=== PATIENT | female | born 1985 | race African-American/Black ===

== ENCOUNTER 2021-02-07 11:51 | Emergency (ER) | payer OTHER, SELFPAY ==
--- NOTE | ~2021-02-07 | CT_ITS ---
EXAMINATION: CT brain wo con, CT cervical spine wo con EXAM DATE: 02/07/2021 12:23 INDICATION: Fall, hit left side of head. Injury was on Thursday. TECHNIQUE: Spiral CT of the head was performed without contrast. Axial, coronal and sagittal images were reviewed. Spiral CT of the cervical spine was performed without contrast. Axial images were rev iewed. Coronal and sagittal reformatted images were also reviewed. The dose-length product (DLP) fo r this examination was 605.33 (accession [id number]), 431.33 (accession [id number]) mGy-cm. The exposure was tailored according to patient size, and iterative reconstruction (ASIR) was used as additional dose reduction technique. There is no prior study for comparison. FINDINGS: HEAD CT: There is no acute intraparenchymal hemorrhage. No evidence of intraparenchymal brain mass l esion. No evidence of acute infarction. There is no mass effect or midline shift. There is no obstru ctive hydrocephalus suspected. There are no extra-axial collections. There are no acute calvarial f ractures. The orbits are unremarkable. Soft tissue is unremarkable. The visualized sinuses and mas toid air cells are well aerated. CERVICAL CT: Unremarkable lung apices. There is no evidence of acute cervical fracture. The odontoid process is intact. Pre-dens space is normal. Prevertebral soft tissue is normal. There are no sof t tissue abnormalities identified. There is no disc space widening or traumatic vertebral body sublu xation suspected. There is mild C5-6 disc disease and mild cervical arthropathy. A detailed level b y level evaluation of spondylosis can be added as addendum if requested. IMPRESSION: 1. No acute intracranial findings or cervical fracture. Reviewed, dictated and finalized at location A. IMPRESSION: 1. No acute intracranial findings or cervical fracture.
[2021-02-07 12:00] VITALS: BP 146/98; PULSE 106; RESP 18; TEMP 36.1; O2SAT 98
--- NOTE | 2021-02-07 12:21 | ED.HEATRA ---
HPI - Head Injury General Chief complaint: Head Injury Stated complaint: fall with head injury Time Seen by Provider: 02/07/21 11:54 Source: RN notes reviewed History of Present Illness HPI Narrative: Patient presents emergency department from home for headache. Patient states that 3 days ago she was walking across her living room when she slipped on a mirror that was on the floor and fell backwards striking the back of her head on her in table she states that since that time she has had severe pain in her left posterior scalp behind her left ear going down into her left neck the pain progressively worsening every day states pain is worse with any movement of her neck bilaterally she denies any facial pain she denies any loss of consciousness vision changes numbness or tingling in the extremities or any other symptoms denies any other injury from the fall Related Data Allergies Allergy/AdvReac Type Severity Reaction Status Date / Time No Known Allergies Allergy Verified 02/07/21 12:06 Review of Systems Review of Systems: Gen.: Denies fevers or chills Eyes: Denies eye pain or visual change ENT: Denies congestion Respiratory: Denies shortness of breath or cough CV: Denies chest pain GI: Denies abdominal pain nausea, emesis Musculoskeletal: D reports left-sided neck pain Neuro: See HPI Skin: Denies rash Except as documented, all other systems reviewed and negative [facility] Past Medical History Medical History (Updated 02/07/21 @ 12:38 by Morteza Clemente DO) Diabetes mellitus Social History Social History (Updated 02/07/21 @ 12:23 by Morteza Clemente DO) Smoking status: Never smoker Exam Narrative: APPEARANCE: No acute distress, nontoxic, resting in bed EYES: EOMI HEENT: Normocephalic, tender palpation over the left posterior lateral scalp behind left ear no step-off seen no ecchymosis seen, TMs clear bilaterally nares patent full range of motion of jaw without pain Neck: Supple no midline chest palpation temporal patient with 2 muscles C1-3 pain with rotation of the head bilaterally RESPIRATORY: No respiratory distress MUSCULOSKELETAl: Moves all extremities. No clubbing, cyanosis or edema. NEURO: Awake and alert x 4. Following commands, speech normal, no focal deficits SKIN:: Warm, dry. No rashes lesions or abrasions PSYCHIATRIC: Normal affect/mood, Course Course Emergency Course: Discussed with patient results of workup and diagnosis. Discussed need for follow-up with primary care, proper use of medication, and reasons to return to the emergency department. Patient understands and agrees to current treatment plan Vital Signs Vital signs: Vital Signs Temperature 97 F L 02/07/21 12:00 Pulse Rate 106 H 02/07/21 12:00 Respiratory Rate 18 02/07/21 12:00 Blood Pressure 146/98 H 02/07/21 12:00 Pulse Oximetry 98 02/07/21 12:00 Temperature 97 F L 02/07/21 12:00 Pulse Rate 106 H 02/07/21 12:00 Respiratory Rate 18 02/07/21 12:00 Blood Pressure 146/98 H 02/07/21 12:00 Pulse Oximetry 98 02/07/21 12:00 MDM - Head Injury Imaging Data Radiologist's impression: ITS Impressions Cervical Spine CT 02/07/21 12:29 IMPRESSION: 1. No acute intracranial findings or cervical fracture. Head CT 02/07/21 12:29 IMPRESSION: 1. No acute intracranial findings or cervical fracture. Discharge Plan Discharge Clinical Impression: Contusion of head, Cervical strain, acute Patient Disposition: Home, Self-Care Condition: Stable Instructions: Antibiotic Form, Head Injury (ED) Additional Instructions: Return for increasing pain numbness or tingling in extremities or any other symptoms of concern Follow-up/Referrals: [facility], [Primary Care Provider] - 2 Days Time of Disposition: 12:38
--- NOTE | 2021-02-07 12:30 | PC.NURSE ---
Declines taking motrin, states she's on volteran and has been advised not to take other NSAIDS. States will take tylenol at home.
[2021-02-07 12:45] VITALS: BP 145/97; PULSE 108; RESP 18; TEMP 36.8; O2SAT 99
== END 2021-02-07 12:45 | disposition home or self-care (01) ==
PROVIDERS: Emergency Provider Emergency Medicine
DX: S16.1XXA Strain of muscle, fascia and tendon at neck level, initial encounter (principal); S00.03XA Contusion of scalp, initial encounter; E11.9 Type 2 diabetes mellitus without complications; W01.0XXA Fall on same level from slipping, tripping and stumbling without subsequent striking against object, initial encounter
CPT/HCPCS: 70450; 72125; 99284

== ENCOUNTER 2021-03-26 09:09 | Emergency (ER) | payer OTHER, SELFPAY ==
[2021-03-26 09:22] VITALS: BP 109/84; PULSE 93; RESP 16; TEMP 36.4; O2SAT 99
--- NOTE | 2021-03-26 10:34 | ED.NAVMDI ---
HPI - Nausea/Vomiting/Diarrhea General Chief complaint: Nausea/Vomiting/Diarrhea Stated complaint: NAUSEA/ABD PAIN Time Seen by Provider: 03/26/21 10:18 Source: patient and RN notes reviewed Mode of arrival: ambulatory Limitations: no limitations History of Present Illness HPI Narrative: Patient presents today complaining of nausea since yesterday with some slightly loose stools, but denies abdominal pain, vomiting, fever, diarrhea. She took 2 doses of Pepto-Bismol yesterday. Reports the first dose did help, but the second dose did not. Her nausea increases with any movement. Denies sick contacts. Denies chance of as she has been on her period continuously for the past month. MD elicited complaint: nausea Related Data Home Medications Medication Instructions Recorded Confirmed Calcium 03/26/21 03/26/21 biotin 03/26/21 dextroamphetamine-amphetamine 10 mg PO DAILY 03/26/21 03/26/21 [Adderall] dextroamphetamine-amphetamine 30 mg PO DAILY 03/26/21 03/26/21 [Adderall] diclofenac sodium 100 mg PO DAILY 03/26/21 03/26/21 duloxetine [Cymbalta] 20 mg PO BID 03/26/21 03/26/21 ergocalciferol (vitamin D2) 03/26/21 metformin 500 mg PO DAILY 03/26/21 03/26/21 omeprazole [Prilosec] 20 mg PO DAILY 03/26/21 03/26/21 pregabalin [Lyrica] 75 mg PO HS 03/26/21 03/26/21 sitagliptin [Januvia] 50 mg PO DAILY 03/26/21 03/26/21 Allergies Allergy/AdvReac Type Severity Reaction Status Date / Time No Known Allergies Allergy Verified 02/07/21 12:06 Review of Systems Review of Systems: CONSTITUTIONAL: Denies body aches, fever, chills, or sweats. EYES: Denies visual changes, redness, or discharge. ENT: Denies rhinorrhea, congestion, sore throat, or otalgia. CARDIOVASCULAR: Denies chest pain, palpitations, or edema. RESPIRATORY: Denies cough or dyspnea. GASTROINTESTINAL: Denies abdominal pain, vomiting, or diarrhea.+ Nausea GENITOURINARY: Denies dysuria or hematuria. SKIN: Denies rash, itching, or wounds. MUSCULOSKELETAL: Denies back pain, joint pain, or myalgia. NEUROLOGIC: Denies headache, numbness, tingling, or weakness. PSYCH: Denies depression or anxiety. [facility] Past Medical History Medical History (Updated 03/26/21 @ 11:17 by Annia Huerta, [facility], ) ADHD Diabetes mellitus Fibromyalgia GERD (gastroesophageal reflux disease) Social History Social History Smoking status: Never smoker Comments At time of signature, I have reviewed and agree with nursing past medical, surgical, social and family history unless otherwise noted. Please see nursing chart for further information. There is no relevant family history pertinent to the presenting complaint Exam Narrative: GENERAL: Well-appearing, well-nourished, and in no acute distress. HEAD: Normocephalic, atraumatic. EYES: EOMI. No redness or drainage. Conjunctivae normal. ENT: Mucous membranes pink and moist. NECK: Normal AROM. CHEST: No respiratory distress. Clear to auscultation. HEART: Regular rate and rhythm. No murmur appreciated. Normal peripheral pulses. ABDOMEN: Soft, nontender, nondistended, normal active bowel sounds. EXTREMITIES: Normal range of motion. No edema. SKIN: Warm, dry, no rash. Capillary refill normal. Normal skin turgor. NEURO: No focal deficits. Alert and oriented x3. Gait steady. PSYCH: Normal affect. No signs of depression or anxiety. Course Course Emergency Course: 1115-patient is sitting up in the exam room and states she is feeling much better after the Zofran. Anticipatory guidance given. Vital Signs Vital signs: Vital Signs Temperature 97.5 F L 03/26/21 09:22 Pulse Rate 93 03/26/21 09:22 Respiratory Rate 16 03/26/21 09:22 Blood Pressure 109/84 03/26/21 09:22 Pulse Oximetry 99 03/26/21 09:22 Temperature 97.5 F L 03/26/21 09:22 Pulse Rate 93 03/26/21 09:22 Respiratory Rate 16 03/26/21 09:22 Blood Pressure 109/
[2021-03-26] MEDS: ONDANSETRON HCL ODT 4 MG TABLET 8 MG SUBLINGUAL (10:40)
== END 2021-03-26 11:19 | disposition home or self-care (01) ==
PROVIDERS: Emergency Provider Nurse Practitioner
DX: R11.0 Nausea (principal); F90.9 Attention-deficit hyperactivity disorder, unspecified type; E11.9 Type 2 diabetes mellitus without complications; M79.7 Fibromyalgia; K21.9 Gastro-esophageal reflux disease without esophagitis
CPT/HCPCS: 99213; A9270; G0463

== ENCOUNTER 2021-12-29 14:24 | Emergency (ER) | payer OTHER, SELFPAY ==
[2021-12-29 14:32] VITALS: BP 129/86; PULSE 106; RESP 16; TEMP 35.9; O2SAT 100
--- NOTE | 2021-12-29 14:59 | ED.SKABFB ---
HPI - Skin/Abscess/Foreign Bdy General Chief complaint: Skin/Abscess/Foreign Body Stated complaint: Skin irritation on right shoulder Time Seen by Provider: 12/29/21 14:50 Source: patient, RN notes reviewed and old records reviewed Mode of arrival: ambulatory Limitations: no limitations History of Present Illness HPI narrative: 36-year-old female who presents to [facility] care with complaints of skin irritation to the posterior aspect of her right shoulder from application of ice to her shoulder. Patient reports that she had shoulder surgery a few months ago and was having discomfort to her shoulder and put ice pack to posterior shoulder resulting in discoloration and irritation to the tissue with 2 small blisters noted to skin.Patient reports that she put ice pack directly on skin. MD complaint: discoloration (and skin irritation posterior right shoulder) Tetanus up to date: yes Severity: mild Severity scale (1-10): 2 Treatments prior to arrival: none Related Data Home Medications Medication Instructions Recorded Confirmed gabapentin 300 mg capsule 300 mg PO DIRECTED 12/29/21 12/29/21 Allergies Allergy/AdvReac Type Severity Reaction Status Date / Time No Known Allergies Allergy Verified 12/29/21 15:26 Review of Systems Review of Systems: CONSTITUTIONAL: Denies fever, chills, or sweats. EYES: Denies visual changes, redness, or discharge. ENT: Denies rhinorrhea, congestion, sore throat, or otalgia. CARDIOVASCULAR: Denies chest pain, palpitations, or edema. RESPIRATORY: Denies cough or dyspnea GASTROINTESTINAL: Denies abdominal pain, nausea, vomiting, or diarrhea. GENITOURINARY: Denies dysuria or hematuria. SKIN: Positive for discomfort and itching to posterior right shoulder skin with discoloration and 2 small skin blisters no open drainage. MUSCULOSKELETAL: Denies back pain, right shoulder discomfort, or myalgia. NEUROLOGIC: Denies headache, numbness, or weakness. PSYCHIATRIC: Denies anxiety or depression. All systems reviewed & are unremarkable except as noted in HPI and below PMFSH Past Medical History Medical History (Updated 12/30/21 @ 00:00 by Jose G Aviles) ADHD Diabetes mellitus Fibromyalgia GERD (gastroesophageal reflux disease) Surgical History Surgical History (Updated 01/01/22 @ 08:24 by Sandy Wyman NP) History of arthroscopic surgery of shoulder Social History Social History Smoking status: Never smoker Comments At time of signature, agree with nursing past medical, surgical, social and family history. There is no relevant family history pertinent to the presenting complaint Exam Narrative: GENERAL: Well-appearing, well-nourished, and in no acute distress. HEAD: Normocephalic, atraumatic. EYES: PERRLA and EOMI. ENT: Nares clear, no rhinorrhea or epistaxis. Mucous membranes moist.TM's normal with good light reflex, throat normal with no redness or swelling NECK: Supple.no lymphadenopathy CHEST: Clear to auscultation. No respiratory distress. HEART: Regular rate and rhythm. No murmur heard. Normal peripheral pulses. ABDOMEN: Soft, nontender, nondistended, normal active bowel sounds. EXTREMITIES: Normal range of motion. No edema. SKIN: Warm, dry, discoloration to skin tissue posterior right sholder with 2 small blisters noted no open drainage with some itching and minimal discomfort to skin tissue NEURO: No focal deficits. Alert and oriented x3. Course Course Level of Care: Express Care Visit Vital Signs Vital signs: Vital Signs Temperature 35.9 C L 12/29/21 14:32 Pulse Rate 106 H 12/29/21 14:32 Respiratory Rate 16 12/29/21 14:32 Blood Pressure 129/86 12/29/21 14:32 Pulse Oximetry 100 12/29/21 14:32 Oxygen Delivery Room Air 12/29/21 14:32 Temperature 35.9 C L 12/29/21 14:32 Pulse Rate 106 H 12/29/21 14:32 Respiratory Rate 16 12/29/21 14:32 Blood Pressure 129/86 12/29/21 14:32 Pulse Oxi
== END 2021-12-29 15:21 | disposition home or self-care (01) ==
PROVIDERS: Emergency Provider Registered Nurse
DX: L98.9 Disorder of the skin and subcutaneous tissue, unspecified (principal); E11.9 Type 2 diabetes mellitus without complications; M79.7 Fibromyalgia; K21.9 Gastro-esophageal reflux disease without esophagitis
CPT/HCPCS: 99213; G0463

== ENCOUNTER 2022-09-21 19:12 | Emergency (ER) | payer OTHER, SELFPAY ==
[2022-09-21] VITALS (8 sets, daily range): BP systolic 121–143; BP diastolic 89–110; PULSE 93–134; RESP 15–20; TEMP 36.4; O2SAT 97–100
--- NOTE | ~2022-09-21 | XR_ITS ---
EXAMINATION: XR chest 2V Exam Date/Time: 09/21/2022 20:15 CDT HISTORY: nausea, sweating Comparison: None. RESULT: Lines, tubes, and devices: None. Lungs and pleura: Clear. Cardiomediastinal silhouette: Normal. Other: No acute osseous or upper abdominal finding. IMPRESSION: No acute cardiopulmonary process. Reviewed, dictated and finalized at location K.
[2022-09-21 19:44] LABS: Glucose Point of Care 322 mg/dl (65-105)
--- NOTE | 2022-09-21 20:07 | ECG_ITS ---
Measurements Intervals [place] Rate: 110 P: 41 PA: 151 QRS: -27 QRSD: 69 T: 50 QT: 326 QTc: 443 Interpretive Statements SINUS TACHYCARDIA BORDERLINE R WAVE PROGRESSION, ANTERIOR LEADS BORDERLINE T WAVE ABNORMALITY- ANTERIOR LEADS BASELINE ARTIFACT- AVL, AVF, V1 ABNORMAL ECG NO PREVIOUS ECG AVAILABLE FOR COMPARISON Electronically Signed On 09-21-2022 20:41:32 CDT by Gorge Wen D.O.
--- NOTE | 2022-09-21 20:19 | PC.NURSE ---
Pt in XR ay this time
--- NOTE | 2022-09-21 20:22 | ED.GENADULT ---
HPI - General Adult General Chief complaint: Unspecified Stated complaint: sweating Time Seen by Provider: 09/21/22 19:45 Source: patient and RN notes reviewed Mode of arrival: ambulatory Limitations: no limitations History of Present Illness HPI narrative: THis is a 36 year old female with history of hypertension who presents for evaluation of sweating and nausea. PAtient states she has history of hyperhidrosis but over the past 3 days she has been sweating more than usual with minimal activity. She reports facial sweating that has been profuse . She also reports nausea and she had emesis x [address] to ER. She denies chest pain, sob, abdominal pain, cough, fever or chills. She has diabetes and she has not taken her metformin and Januvia in 2 days due to her nausea. She reports decrease PO intake due to her nausea. She also reports dry mouth. Related Data Home Medications Medication Instructions Recorded Confirmed gabapentin 300 mg capsule 300 mg PO DIRECTED 12/29/21 12/29/21 Allergies Allergy/AdvReac Type Severity Reaction Status Date / Time No Known Allergies Allergy Verified 09/21/22 19:18 Review of Systems Constitutional: Constitutional: Denies weakness ENT: Reports dry mouth Cardiovascular: Cardiovascular: Reports diaphoresis, Denies syncope, Denies rapid heart rate, Denies irregular heart rhythm, Denies leg edema and Denies dyspnea Respiratory: Respiratory: Denies chest congestion, Denies hemoptysis, Denies excessive phlegm production and Denies dyspnea Gastrointestinal: Gastrointestinal: Denies abdominal pain, Denies hematochezia, Denies diarrhea, Reports nausea and Denies vomiting Genitourinary: Genitourinary: Denies hematuria and Denies dysuria Musculoskeletal: Musculoskeletal: Denies joint swelling, Denies loss of height and Denies muscle weakness Neurologic: Denies syncope, Denies focal weakness and Denies weakness PMFSH Past Medical History Medical History ADHD Diabetes mellitus Fibromyalgia GERD (gastroesophageal reflux disease) Surgical History Surgical History History of arthroscopic surgery of shoulder Social History Social History (Updated 09/21/22 @ 21:00 by Yoli Arreola MD) Smoking status: Never smoker Substance use: never Exam Narrative: GENERAL: Well-appearing, well-nourished, and in no acute distress. HEAD: Normocephalic, atraumatic EYES: PERRLA and EOMI, conjunctiva clear without discharge EARS: TM's clear bilaterally without erythema or dullness NOSE: Nares clear, no rhinorrhea or epistaxis THROAT:Mucous membranes moist, Oropharynx normal without erythema, exudate, peritonsillar swelling or fluctuance NECK: Supple, without lymphadenopathy or mass RESPIRATORY: No respiratory distress, Airway patent, Respirations non-labored, Clear to auscultation without rales, rhonchi or wheeze HEART: Regular rate and rhythm. No murmur heard. Normal peripheral pulses. ABDOMEN: Soft, nontender, nondistended, normal active bowel sounds. No masses. No rebound or guarding, No organomegaly. EXTREMITIES: No edema, normal strength with full range of motion. SKIN: Warm, dry, normal color without rash NEURO: Alert and oriented x3. CN 2-12 grossly intact. No focal deficits. PSYCH: Normal mood and affect. Course Reevaluation(s) Reevaluation #1: PAtient states she feels better. She does not have any complaints. Vitals are normal now. She denies any sweating, weakness, nausea or dizziness. Date: 09/21/22 Time: 22:15 Vital Signs Vital signs: Vital Signs Temperature 97.6 F 09/21/22 19:14 Pulse Rate 134 H 09/21/22 19:14 Respiratory Rate 20 09/21/22 19:14 Blood Pressure 141/110 H 09/21/22 19:14 Pulse Oximetry 97 09/21/22 19:14 Oxygen Delivery Room Air 09/21/22 19:14 Temperature 97.6 F 09/21/22 19:14 Pulse Rate 94
[2022-09-21] MEDS: SODIUM CHLORIDE 0.9% IV 1,000 ML 999 ML IV CONT ×2 (20:31→21:13)
[2022-09-21] MEDS: ONDANSETRON INJ 4 MG/2 ML VIAL IV PUSH (20:31)
[2022-09-21 20:44] LABS: Fractional Inspired Oxygen 21 %; HCO3 VBG 24.5 mEq/l (24.0-30.0); PCO2 VBG 35.8 mmHg (42.0-48.0); PO2 VBG 55.7 mmHg (35.0-45.0)
[2022-09-21 20:47] LABS: Device ROOM AIR; pH VBG 7.453 (7.300-7.400)
[2022-09-21 20:48] LABS: Basophils Percent Auto 0.1 % (0.2-1.2); Eosinophils Percent Auto 0.4 % (0-4.4); Hematocrit 46.8 % (37.0-47.0); Hemoglobin 15.4 g/dL (12.0-15.0); Immature Granulocyte Absolute 0.03 K/mm3 (0.00-0.031); Immature Granulocyte Percent A 0.4 % (0-0.5); Lymphocytes Absolute Auto 1.93 K/mm3 (0.9-3.2); Lymphocytes Percent Auto 24.2 % (18.3-44.2); Mean Corpuscular HGB Conc 32.9 g/dl (32-36); Mean Corpuscular Hemoglobin 27.5 pg (26-34); Mean Corpuscular Volume 83.4 fl (80-100); Monocytes Absolute Auto 0.5 K/mm3 (0.1-0.6); Monocytes Percent Auto 6.3 % (2.6-8.5); Neutrophils Absolute Auto 5.5 K/mm3 (1.3-6.7); Neutrophils Percent Auto 68.6 % (45.5-73.1); Platelet Count Result 303 k/mm3 (150-375); Red Blood Count 5.61 M/mm3 (4.2-5.4); Red Cell Distribution Width 13.3 % (11.5-14.5)
[2022-09-21 20:52] LABS: Appearance Urine Clear (Clear); Bacteria Urine None Seen /hpf; Bilirubin Urine Negative (Negative); Blood Urine 2+ (Negative); Color Urine Yellow (Yellow); Glucose Urine UA 3+ mg/dL (Negative); Ketones Urine 2+ mg/dL (Negative); Leukocyte Esterase Ur Negative LEU/UL (Negative); Nitrate Urine Negative (Negative); Non Pathogenic Casts 0-2; Protein Urine 2+ mg/dL (Negative); RBC Urine 0-2 /hpf (0-2); Squamous Epithelial Cell Urine Occasional /hpf (Few); WBC Urine 0-5 /hpf; pH Urine 5.5 (5.0-9.0)
[2022-09-21 20:54] LABS: Specific Grav Ur 1.041 (1.001-1.035)
[2022-09-21 20:55] LABS: Add Urine Microscopic? YES
[2022-09-21 20:59] LABS: Alanine Aminotransferase 29 U/L (6-35); Albumin Level 4.7 g/dL (3.5-5.1); Alkaline Phosphatase 122 U/L (38-126); Anion Gap 9 mmol/L (8-16); Aspartate Amino Transferase 31 U/L (14-36); Bilirubin,Total 0.7 mg/dL (0.2-1.3); Blood Urea Nitrogen 9 mg/dL (7-17); Calcium 9.2 mg/dL (8.4-10.2); Carbon Dioxide 26 mmol/L (22-30); Chloride 99 mmol/L (98-107); Estimated CRCL calculation 116 ml/min; Estimated Glomerular Filt Rate > 60; Glucose 298 mg/dL (65-110); Lipase 53 U/L (23-300); Magnesium 2.1 mg/dL (1.6-2.3); Potassium 4.2 mmol/L (3.4-5.0); Sodium 134 mmol/L (137-145)
[2022-09-21 21:00] LABS: Lactic Acid Reflex 1.5 mmol/L (0.7-2.0)
[2022-09-21] MEDS: INSULIN HUMAN REGULAR (*BKC) 100 UNITS/ML 6 UNITS SUB-Q (21:09)
[2022-09-21 21:16] LABS: Beta-Hydroxybutyrate/Acetoacetate 0.55 mmol/L (0.02-0.27)
[2022-09-21 21:25] LABS: Influenza A QL RT-PCR Negative (Negative); Influenza B QL RT-PCR Negative (Negative); SARS-CoV-2 RNA PCR Negative (Negative)
[2022-09-21 21:58] LABS: Glucose Point of Care 278 mg/dl (65-105)
== END 2022-09-21 22:45 | disposition home or self-care (01) ==
PROVIDERS: Emergency Provider General Practice
DX: E11.65 Type 2 diabetes mellitus with hyperglycemia (principal); E86.0 Dehydration; R61 Generalized hyperhidrosis; I10 Essential (primary) hypertension; Z20.822 Contact with and (suspected) exposure to COVID-19; K21.9 Gastro-esophageal reflux disease without esophagitis; M79.7 Fibromyalgia; R00.0 Tachycardia, unspecified; R94.31 Abnormal electrocardiogram [ECG] [EKG]
CPT/HCPCS: 36415; 71046; 80053; 81001; 81025; 82010; 82803; 82948; 83605; 83690; 83735; 84443; 85025; 87636; 93005; 96361; 96374; 99284; J1815; J2405; J7030

== ENCOUNTER 2024-01-29 14:57 | Emergency (ER) | payer OTHER, SELFPAY ==
--- NOTE | ~2024-01-29 | CT_ITS ---
CTA chest PE protocol Ordering provider: Diego Silva MD History: 38 years Female with . R upper chest/back pain . Comparison: None. Technique: CT angiogram chest was performed following timed intravenous injection of contrast. Thin s lice axial images and reformatted coronal images were obtained. Three dimensional reformatted images of the chest were also obtained using a [employer] workstation. . Automated exposure control and iterati ve reconstruction technique were employed. The dose-length product was 238.66 mGy-cm. 100 mL Omnipaqu e 350 was given IV. The Findings: PULMONARY ARTERIES: No pulmonary embolus. VISUALIZED THORACIC INLET: Normal. MEDIASTINUM: Aorta/coronary arteries: The thoracic aorta is normal. Heart/other: The heart is not enlarged. Lymph nodes: No mediastinal or hilar adenopathy. LUNGS: No pulmonary nodules or masses. No infiltrates or effusions. No pneumothorax. VISUALIZED UPPER ABDOMEN: the visualized upper abdomen is normal. MUSCULOSKELETAL: Soft tissues: The superficial soft tissues are normal. Bones: Normal spine. IMPRESSION: 1. No pulmonary embolism. 2. No acute cardiopulmonary pathology. Reviewed, dictated and finalized at location A.
[2024-01-29 15:06] VITALS: BP 137/81; PULSE 93; RESP 14; TEMP 36.7; O2SAT 100
--- NOTE | 2024-01-29 17:03 | ECG_ITS ---
Test Date: 2024-01-29 17:32:32 Measurements Intervals [place] Rate: 70 P: 51 PA: 156 QRS: -22 QRSD: 75 T: 41 QT: 375 QTc: 406 Interpretive Statements SINUS RHYTHM DELAYED PRECORDIAL R/S TRANSITION BASELINE ARTIFACT- I, II, AVR, V4-V6 BORDERLINE ECG No previous ECG available for comparison Electronically Signed On 01-29-2024 18:44:27 CDT by Gorge Wen D.O.
[2024-01-29] MEDS: dexAMETHasone SOD PHOS INJ 10 MG/ML 1 ML VIAL IV PUSH (17:22)
[2024-01-29] MEDS: HYDROmorphone HCL INJ (*CRX) 1 MG/ML SYR IV PUSH (17:22)
[2024-01-29 17:27] LABS: Basophils Percent Auto 0.4 % (0.2-1.2); Eosinophils Absolute Auto 0.1 K/mm3 (0-0.3); Eosinophils Percent Auto 2.8 % (0-4.4); Hematocrit 43.2 % (37.0-47.0); Hemoglobin 13.7 g/dL (12.0-15.0); Immature Granulocyte Absolute 0.01 K/mm3 (0.00-0.031); Immature Granulocyte Percent A 0.2 % (0-0.5); Lymphocytes Absolute Auto 1.05 K/mm3 (0.9-3.2); Lymphocytes Percent Auto 22.3 % (18.3-44.2); Mean Corpuscular HGB Conc 31.7 g/dl (32-36); Mean Corpuscular Hemoglobin 27.2 pg (26-34); Mean Corpuscular Volume 85.7 fl (80-100); Mean Platelet Volume 9.7 fl (7.4-10.4); Monocytes Absolute Auto 0.4 K/mm3 (0.1-0.6); Monocytes Percent Auto 7.9 % (2.6-8.5); Neutrophils Absolute Auto 3.1 K/mm3 (1.3-6.7); Neutrophils Percent Auto 66.4 % (45.5-73.1); Platelet Count Result 333 k/mm3 (150-375); Red Blood Count 5.04 M/mm3 (4.2-5.4); Red Cell Distribution Width 13.4 % (11.5-14.5); White Blood Count 4.7 K/mm3 (4.5-10.0)
[2024-01-29 17:38] LABS: Anion Gap 9 mmol/L (4-12); Blood Urea Nitrogen 14 mg/dL (7-17); Calcium 9.4 mg/dL (8.4-10.2); Carbon Dioxide 28 mmol/L (22-30); Chloride 97 mmol/L (98-107); Estimated CRCL calculation 84 ml/min; Estimated Glomerular Filt Rate > 60; Glucose 154 mg/dL (65-110); Potassium 4.2 mmol/L (3.4-5.0); Sodium 134 mmol/L (137-145)
--- NOTE | 2024-01-29 18:11 | ED.BACK ---
HPI - Back Pain/Injury General Chief Complaint: Back Pain/Injury Stated Complaint: back pain Time Seen by Provider: 01/29/24 16:40 History of Present Illness HPI Narrative: 38-year-old female with no significant pertinent past medical history presenting to the emergency department evaluation of back pain and chest pain on the right side. Patient states that she has been dealing with this intermittently for the last 3 weeks and describes a pain sensation in her right-sided ribcage, deep in her chest that sometimes radiates towards her back does not cross or involved with midline. No abdominal pain, groin pain, flank pain, nausea, vomiting, abdominal pain, or urinary complaints. She was seen by several doctors including at urgent care and emergency medical through the [place]. she underwent a CT of the abdomen which found some nonobstructing 2 mm kidney stones not in the ureters but in the kidney itself. CT report was presented and I read through it myself. She states she does not feel like it is the kidney stones as the pain feels totally in her chest and upper back and not in her abdomen or pelvis. She was otherwise in her normal state of health. She states that her C taking deep breath, hurts to move, hurts to lie on her back. Denies any trauma or injuries or any inciting events. No history of DVT, PE, long travel, immobilization or recent surgeries procedures. Related Data Home Medications Medication Instructions Recorded Confirmed gabapentin 300 mg capsule 300 mg PO DIRECTED 12/29/21 12/29/21 Allergies Allergy/AdvReac Type Severity Reaction Status Date / Time No Known Allergies Allergy Verified 09/21/22 19:18 Review of Systems Review of Systems: As reviewed above in HPI [facility] Past Medical History Medical History ADHD Diabetes mellitus Fibromyalgia GERD (gastroesophageal reflux disease) Surgical History Surgical History History of arthroscopic surgery of shoulder Social History Social History Smoking status: Never smoker Substance use: never Exam Narrative: GENERAL: Well appearing but acutely in pain, not in any acute distress HEAD: [Normocephalic, atraumatic.] EYES: [PERRLA and EOMI.] ENT: Nares clear, no rhinorrhea or epistaxis. Mucous membranes moist. NECK: Supple. CHEST: [Clear to auscultation. No respiratory distress.] HEART: [Regular rate and rhythm]. No murmur heard. [Normal peripheral pulses.] ABDOMEN: [Soft, nondistended], [nontender], [No rigidity or guarding] EXTREMITIES: No T, L-spine or paraspinal muscle tenderness. [No edema.] Focal tenderness to palpation over the right-sided periscapular muscles, right-sided upper chest. No overlying skin changes or rashes. Full range of motion of the extremities. SKIN: Warm, dry, no rash. NEURO: [No focal deficits]. Alert and oriented [x3.] PSYCH: [Normal mood and affect.] Course Vital Signs Vital signs: Vital Signs Temperature 36.7 C 01/29/24 15:06 Pulse Rate 93 01/29/24 15:06 Respiratory Rate 14 01/29/24 15:06 Blood Pressure 137/81 01/29/24 15:06 Pulse Oximetry 100 01/29/24 15:06 Oxygen Delivery Room Air 01/29/24 15:06 Temperature 36.7 C 01/29/24 15:06 Pulse Rate 93 01/29/24 15:06 Respiratory Rate 14 01/29/24 15:06 Blood Pressure 137/81 01/29/24 15:06 Pulse Oximetry 100 01/29/24 15:06 Oxygen Delivery Room Air 01/29/24 15:06 MDM - Back Pain/Injury MDM Narrative Medical decision making narrative: 38-year-old female with no pertinent past medical history presenting to the ED for evaluation of right-sided back and chest pain. She states symptoms are going on for last 3 weeks and feels like a sharp pain deep in her chest only on the right side. Worse with coughing and worse with deep inhalatio
[2024-01-29 19:04] VITALS: BP 127/84; PULSE 78; RESP 18; TEMP 36.4; O2SAT 100
== END 2024-01-29 19:15 | disposition home or self-care (01) ==
PROVIDERS: Emergency Provider Student in an Organized Health Care Education/Training Program
DX: M54.9 Dorsalgia, unspecified (principal); F90.9 Attention-deficit hyperactivity disorder, unspecified type; E11.9 Type 2 diabetes mellitus without complications; K21.9 Gastro-esophageal reflux disease without esophagitis
CPT/HCPCS: 36415; 71275; 80048; 85025; 93005; 96374; 96375; 99284; J1100; J1170; Q9967

== ENCOUNTER 2024-02-19 19:10 | Emergency (ER) | payer OTHER, SELFPAY ==
--- NOTE | ~2024-02-19 | XR_ITS ---
XR chest 2V Ordering provider: Brissa Quintero MD History: 38 years Female with . 1312, PAIN WITH COUGH . Comparison: September 21, 2022 FINDINGS: MEDIASTINUM: The cardiac silhouette is not enlarged. LUNGS: No infiltrates, effusions or pneumothorax. OTHER: No free air under the diaphragm. IMPRESSION: No acute cardiopulmonary pathology. Reviewed, dictated and finalized at location A.
[2024-02-19 19:12] VITALS: BP 147/107; PULSE 104; RESP 18; TEMP 36.9; O2SAT 100
[2024-02-19 19:30] VITALS: BP 127/91; PULSE 97; RESP 16; TEMP 36.9; O2SAT 96
--- NOTE | 2024-02-19 19:35 | ED.BACK ---
HPI - Back Pain/Injury General Chief Complaint: Back Pain/Injury Stated Complaint: back pain Time Seen by Provider: 02/19/24 19:35 Source: patient Mode of arrival: ambulatory Limitations: no limitations History of Present Illness HPI Narrative: 38 YEARS OLD FEMALE CAME TO THE ED BY PRIVATE CAR COMPLAINING OF PAIN AT THE RIGHT SCAPULA STARTED DECEMBER 13, 2023. PATIENT WAS SEEN AT [facility] EMERGENCY ROOM, LATER BY HER FAMILY PHYSICIAN, LATER BY UROLOGIST, LATER MY ENTERING CARE AND TODAY BY HER FAMILY PHYSICIAN AGAIN WHO REFERRED HER TO THE EMERGENCY ROOM. PATIENT REPORTS THAT THE PAIN GETS BETTER WITH MRS. EASLEY, WORSE WITH MOVEMENT. SHE DENIES ANY FEVER, CHILLS, NAUSEA, VOMITING, CHEST PAIN, SHORTNESS OF BREATH. PATIENT DENIES ANY NEW PHYSICAL ACTIVITIES. PATIENT WAS DIAGNOSED RECENTLY OF KIDNEY STONE, URINARY TRACT INFECTION, HAD A COURSE OF ANTIBIOTIC AND MUSCLE RELAXANT WHICH HELPED. HISTORY OF DIABETES, HYPERTENSION, HYPERLIPIDEMIA, MARIJUANA USE, NO HISTORY OF ABDOMINAL SURGERY. Related Data Home Medications Medication Instructions Recorded Confirmed gabapentin 300 mg capsule 300 mg PO DIRECTED 12/29/21 12/29/21 Allergies Allergy/AdvReac Type Severity Reaction Status Date / Time No Known Allergies Allergy Verified 02/19/24 19:11 Review of Systems Review of Systems: All systems reviewed & are unremarkable except as noted in HPI and below PMFSH Past Medical History Medical History ADHD Diabetes mellitus Fibromyalgia GERD (gastroesophageal reflux disease) Surgical History Surgical History History of arthroscopic surgery of shoulder Social History Social History Smoking status: Never smoker Substance use: never Exam Narrative: GENERAL APPEARANCE: WELL-DEVELOPED, WELL-NOURISHED SKIN: NORMAL COLOR HEAD: NORMOCEPHALIC, NONTRAUMATIC EYES: CLEAR CONJUNCTIVA ENT: OROPHARYNX NORMAL, EARS NORMAL, NOSE NORMAL NECK: SUPPLE, NONTENDER CHEST AND RESPIRATORY: AIRWAY PATENT, NO RESPIRATORY DISTRESS, NO ACCESSORY MUSCLE USE HEART: REGULAR RATE/RHYTHM ABDOMEN: SOFT, NONTENDER, NO ORGANOMEGALY, QUIET BOWEL SOUNDS VASCULAR: NORMAL PERIPHERAL PULSES, NORMAL CAPILLARY REFILL. MUSCULOSKELETAL: DIFFUSE TENDERNESS AND THE RIGHT SCAPULA, NO BRUISES, NO SWELLING, NO RASH, NO ERYTHEMA. NEUROLOGIC: ALERT AND ORIENTED ?3, HOSPICE SPIRITUAL CARE COORDINATOR IS NORMAL TESTED, NO GROSS MOTOR DEFICIT Course Vital Signs Vital signs: Vital Signs Temperature 36.9 C 02/19/24 19:12 Pulse Rate 104 H 02/19/24 19:12 Respiratory Rate 18 02/19/24 19:12 Blood Pressure 147/107 H 02/19/24 19:12 Pulse Oximetry 100 02/19/24 19:12 Oxygen Delivery Room Air 02/19/24 19:12 Temperature 36.9 C 02/19/24 19:30 Pulse Rate 97 02/19/24 19:30 Respiratory Rate 16 02/19/24 19:30 Blood Pressure 127/91 H 02/19/24 19:30 Pulse Oximetry 96 02/19/24 19:30 Oxygen Delivery Room Air 02/19/24 19:30 MDM - Back Pain/Injury MDM Narrative Medical decision making narrative: PATIENT CAME TO THE ED WITH PAIN AT THE RIGHT SCAPULAR AREA FOR A WHILE VITAL SIGNS ARE STABLE PHYSICAL EXAMINATION SHOWED MODERATE TENDERNESS AT THE RIGHT SCAPULA, NO BRUISES, NO SWELLING OR RASH DIFFERENTIAL DIAGNOSIS INCLUDE MUSCULOSKELETAL, PNEUMONIA, PULMONARY EMBOLISM BLOOD WORKUP TODAY SHOWED NO ACUTE ABNORMALITIES URINALYSIS SHOWED NO ACUTE ABNORMALITIES CHEST X-RAY SHOWED NO ACUTE ABNORMALITIES MUSCULOSKELETAL PAIN IS MY CONCERN. DISCHARGED ON DICLOFENAC AND FLEXERIL. THE PT WAS DISCHARGED TO [facility]
[2024-02-19 20:58] LABS: Basophils Percent Auto 0.6 % (0.2-1.2); Eosinophils Absolute Auto 0.2 K/mm3 (0-0.3); Eosinophils Percent Auto 3.5 % (0-4.4); Hematocrit 38.4 % (37.0-47.0); Hemoglobin 12.4 g/dL (12.0-15.0); Immature Granulocyte Absolute 0.01 K/mm3 (0.00-0.031); Immature Granulocyte Percent A 0.2 % (0-0.5); Lymphocytes Absolute Auto 1.74 K/mm3 (0.9-3.2); Lymphocytes Percent Auto 32.3 % (18.3-44.2); Mean Corpuscular HGB Conc 32.3 g/dl (32-36); Mean Corpuscular Hemoglobin 27.5 pg (26-34); Mean Corpuscular Volume 85.1 fl (80-100); Mean Platelet Volume 9.6 fl (7.4-10.4); Monocytes Absolute Auto 0.4 K/mm3 (0.1-0.6); Monocytes Percent Auto 7.4 % (2.6-8.5); Platelet Count Result 314 k/mm3 (150-375); Red Blood Count 4.51 M/mm3 (4.2-5.4); Red Cell Distribution Width 13.6 % (11.5-14.5); White Blood Count 5.4 K/mm3 (4.5-10.0)
[2024-02-19 21:11] LABS: Alanine Aminotransferase 19 U/L (6-35); Albumin Level 3.8 g/dL (3.5-5.1); Alkaline Phosphatase 62 U/L (38-126); Anion Gap 5 mmol/L (4-12); Aspartate Amino Transferase 23 U/L (14-36); Bilirubin,Total 0.4 mg/dL (0.2-1.3); Blood Urea Nitrogen 7 mg/dL (7-17); Carbon Dioxide 28 mmol/L (22-30); Chloride 101 mmol/L (98-107); Estimated CRCL calculation 84 ml/min; Estimated Glomerular Filt Rate > 60; Glucose 146 mg/dL (65-110); Sodium 134 mmol/L (137-145)
[2024-02-19 21:18] LABS: D Dimer < 0.27 ug/mL (<0.48)
[2024-02-19 21:29] LABS: Add Urine Microscopic? NO; Appearance Urine Clear (Clear); Bilirubin Urine Negative (Negative); Blood Urine Negative (Negative); Color Urine Yellow (Yellow); Glucose Urine UA Trace mg/dL (Negative); Ketones Urine Negative (Negative); Leukocyte Esterase Ur Negative LEU/UL (Negative); Nitrate Urine Negative (Negative); Protein Urine Negative (Negative); pH Urine 6.5 (5.0-9.0)
[2024-02-19] MEDS: KETOROLAC (*BKC) 60 MG/2 ML VIAL IM (22:45)
[2024-02-19] MEDS: HYDROcodone/acetaminophen (*CRX) 5-325 MG TABLET 1 TAB PO (22:45)
[2024-02-19 22:48] VITALS: BP 132/84; PULSE 98; RESP 18; TEMP 36.9; O2SAT 100
== END 2024-02-19 22:57 | disposition home or self-care (01) ==
PROVIDERS: Emergency Provider Emergency Medicine
DX: M54.9 Dorsalgia, unspecified (principal); F90.9 Attention-deficit hyperactivity disorder, unspecified type; K21.9 Gastro-esophageal reflux disease without esophagitis; E11.9 Type 2 diabetes mellitus without complications
CPT/HCPCS: 36415; 71046; 80053; 81003; 85025; 85380; 96372; 99283; A9270; J1885

== ENCOUNTER 2024-03-01 23:37 | Emergency (ER) | payer OTHER, SELFPAY ==
[2024-03-01 23:51] VITALS: BP 151/135; PULSE 91; RESP 18; TEMP 36.3; O2SAT 97; O2SAT 98
[2024-03-02] MEDS: ONDANSETRON INJ 4 MG/2 ML VIAL IV PUSH (00:34)
[2024-03-02] MEDS: MORPHINE SULFATE (*CRX) 4 MG/ML INJ IV PUSH (00:34)
[2024-03-02] MEDS: ACETAMINOPHEN 500 MG TABLET 1000 MG PO (00:34)
[2024-03-02 00:38] VITALS: BP 124/82; PULSE 91; RESP 19; O2SAT 100
[2024-03-02 00:41] LABS: Basophils Percent Auto 0.3 % (0.2-1.2); Eosinophils Absolute Auto 0.2 K/mm3 (0-0.3); Eosinophils Percent Auto 2.5 % (0-4.4); Hematocrit 37.4 % (37.0-47.0); Hemoglobin 12.6 g/dL (12.0-15.0); Immature Granulocyte Absolute 0.01 K/mm3 (0.00-0.031); Immature Granulocyte Percent A 0.2 % (0-0.5); Lymphocytes Absolute Auto 1.91 K/mm3 (0.9-3.2); Lymphocytes Percent Auto 29.8 % (18.3-44.2); Mean Corpuscular HGB Conc 33.7 g/dl (32-36); Mean Corpuscular Hemoglobin 27.8 pg (26-34); Mean Corpuscular Volume 82.6 fl (80-100); Mean Platelet Volume 9.7 fl (7.4-10.4); Monocytes Absolute Auto 0.5 K/mm3 (0.1-0.6); Neutrophils Absolute Auto 3.8 K/mm3 (1.3-6.7); Neutrophils Percent Auto 59.2 % (45.5-73.1); Platelet Count Result 316 k/mm3 (150-375); Red Blood Count 4.53 M/mm3 (4.2-5.4); Red Cell Distribution Width 13.2 % (11.5-14.5); White Blood Count 6.4 K/mm3 (4.5-10.0)
[2024-03-02 00:53] LABS: Alanine Aminotransferase 14 U/L (6-35); Albumin Level 4.1 g/dL (3.5-5.1); Alkaline Phosphatase 70 U/L (38-126); Anion Gap 9 mmol/L (4-12); Aspartate Amino Transferase 18 U/L (14-36); Bilirubin,Total 0.5 mg/dL (0.2-1.3); Blood Urea Nitrogen 9 mg/dL (7-17); Calcium 9.4 mg/dL (8.4-10.2); Carbon Dioxide 25 mmol/L (22-30); Chloride 100 mmol/L (98-107); Estimated CRCL calculation 84 ml/min; Estimated Glomerular Filt Rate > 60; Glucose 166 mg/dL (65-110); Lipase 50 U/L (23-300); Potassium 3.6 mmol/L (3.4-5.0); Sodium 134 mmol/L (137-145)
[2024-03-02 00:56] LABS: D Dimer < 0.27 ug/mL (<0.48)
--- NOTE | 2024-03-02 01:52 | ED.BACK ---
HPI - Back Pain/Injury General Chief Complaint: Back Pain/Injury Stated Complaint: back and rib pain Time Seen by Provider: 03/01/24 23:51 Source: patient and old records reviewed Mode of arrival: ambulatory Limitations: no limitations History of Present Illness HPI Narrative: Patient is a 38-year-old female who presents the ED with report of back and side pain. Patient reports having pain throughout her right mid back, wrapping around her ribcage to her right upper abdomen. States pain has been intermittent since December. She has undergone thorough workups for this. Has been seen in several different EDs including twice here, as well as seen by a a urologist, and treated for a UTI. She states pain became worse around 5:00 p.m. tonight. Worse with movement. She attempted taking diclofenac and Flexeril at home but denied improvement of pain. She then prompted here for further evaluation. Denies numbness, nausea, vomiting, diarrhea, constipation, fevers, dysuria, hematuria Related Data Home Medications Medication Instructions Recorded Confirmed gabapentin 300 mg capsule 300 mg PO DIRECTED 12/29/21 12/29/21 Allergies Allergy/AdvReac Type Severity Reaction Status Date / Time No Known Allergies Allergy Verified 02/19/24 19:11 Review of Systems Review of Systems: All systems reviewed & are unremarkable except as noted in HPI. All systems reviewed & are unremarkable except as noted in HPI and below PMFSH Past Medical History Medical History ADHD Diabetes mellitus Fibromyalgia GERD (gastroesophageal reflux disease) Surgical History Surgical History History of arthroscopic surgery of shoulder Social History Social History Smoking status: Never smoker Substance use: never Exam Narrative: GENERAL: Well appearing, well-nourished, non-toxic, in no acute distress. HEAD: Normocephalic, atraumatic. RESPIRATORY: Airway patent, respirations nonlabored. Clear to auscultation bilaterally, no rales, rhonchi, wheezing. CARDIOVASCULAR: Regular rate and rhythm without murmurs, rubs, or gallops. ABDOMINAL: Soft, no significant tenderness throughout upper abdomen, nondistended. Normoactive BS. MUSCULOSKELETAL: Moves all extremities. No gross deformities. Mild TTP over inferior posterior/lateral right sided rib cage. No palpable bony deformities. SKIN: Warm, dry, normal color. NEURO: A&O X3. Speech clear. Cranial nerves II-XII grossly intact. No ataxic movements. PSYCHIATRIC: Appropriate mood and affect. Normal interaction. Course Vital Signs Vital signs: Vital Signs Temperature 97.4 F L 03/01/24 23:51 Pulse Rate 91 03/01/24 23:51 Respiratory Rate 18 03/01/24 23:51 Blood Pressure 151/135 H 03/01/24 23:51 Pulse Oximetry 97 03/01/24 23:51 Oxygen Delivery Room Air 03/01/24 23:51 Temperature 97.4 F L 03/01/24 23:51 Pulse Rate 86 03/02/24 02:27 Respiratory Rate 19 03/02/24 02:27 Blood Pressure 130/92 H 03/02/24 02:27 Pulse Oximetry 100 03/02/24 02:27 Oxygen Delivery Room Air 03/01/24 23:51 MDM - Back Pain/Injury MDM Narrative Medical decision making narrative: Patient presented to ED with right-sided back and rib pain. Reports pain has been ongoing and intermittent since December. She has had several workups for this which have been unremarkable. Of note, she was seen in the ED here twice within the last 1 month with negative workups. Pain was thought to be related to musculoskeletal etiology. Pain worse with movement. Patient did take Flexeril and diclofenac prior to arrival but denied improvement. Denies any recent falls or injuries. No recent strenuous activity or otherwise abnormal activity. She is neurovascularly intact. Vital signs are stable. She is not reporting shortness of b
[2024-03-02] MEDS: dexAMETHasone SOD PHOS INJ 10 MG/ML 1 ML VIAL IV PUSH (02:21)
[2024-03-02] MEDS: diazePAM INJ (*CRX) 10 MG/2 ML SYRINGE 2.5 MG IV PUSH (02:22)
[2024-03-02 02:27] VITALS: BP 130/92; PULSE 86; RESP 19; O2SAT 100
[2024-03-02 02:37] LABS: Add Urine Microscopic? YES; Appearance Urine Clear (Clear); Bacteria Urine None Seen /hpf; Bilirubin Urine Negative (Negative); Blood Urine Negative (Negative); Color Urine Yellow (Yellow); Glucose Urine UA Negative (Negative); Ketones Urine Negative (Negative); Leukocyte Esterase Ur Trace LEU/UL (Negative); Nitrate Urine Negative (Negative); Non Pathogenic Casts 0-2; Protein Urine Negative (Negative); RBC Urine 0-2 /hpf (0-2); Specific Grav Ur 1.011 (1.001-1.035); Squamous Epithelial Cell Urine None Seen /hpf (Few); WBC Urine 0-5 /hpf (0-3); pH Urine 5.5 (5.0-9.0)
[2024-03-02 03:06] VITALS: BP 117/87; PULSE 83; RESP 17; TEMP 36.6; O2SAT 100
== END 2024-03-02 03:08 | disposition home or self-care (01) ==
PROVIDERS: Emergency Provider Physician Assistant
DX: M54.6 Pain in thoracic spine (principal); R07.81 Pleurodynia; E11.9 Type 2 diabetes mellitus without complications; M79.7 Fibromyalgia; K21.9 Gastro-esophageal reflux disease without esophagitis
CPT/HCPCS: 36415; 80053; 81001; 83690; 85025; 85380; 96374; 96375; 99284; A9270; J1100; J2270; J2405; J3360

== ENCOUNTER 2024-08-30 20:30 | Emergency (ER) | payer OTHER, SELFPAY ==
--- NOTE | ~2024-08-30 | CT_ITS ---
CLINICAL INDICATION: Generalized abdominal pain. Obstruction suspected clinically COMPARISON: None. TECHNIQUE: Multiple contiguous axial images of the abdomen and pelvis were performed following the ad ministration of with 100 mL Omnipaque-350 intravenous contrast The dose-length product (DLP) was 239.58 mGy-cm. Automated exposure control and iterative reconstruction technique were employed. FINDINGS/OBSERVATIONS: Visualized lower thorax: The bilateral lung bases are clear. The heart is of normal size, without pericardial effusion. Small hiatal hernia is present. Liver: The liver demonstrates homogeneous enhancement and is not enlarged. Gallbladder and biliary system: The gallbladder is only minimally distended, and otherwise unremarkable. Pancreas: The pancreas enhances homogeneously without ductal dilatation. Spleen: The spleen enhances homogeneously and is not enlarged. Kidneys: The bilateral kidneys enhance symmetrically without hydronephrosis or renal calculi. Adrenal glands: Unremarkable. Gastrointestinal tract: Colonic diverticulosis without surrounding inflammatory change. Appendix: The air-filled appendix is of normal caliber (axial series, images 122 through 125). Vasculature: Unremarkable. Lymph nodes: No pathologically enlarged or morphologically suspicious lymph nodes within the retroperitoneum or at the root of the mesentery. Pelvic structures: The bladder is distended, and otherwise unremarkable. The uterus is retroverted and antral flexed. A uterine pessary is present. Body wall and musculoskeletal: Small fat-containing umbilical hernia. No significant degenerative disease within the lower thoracic or lumbosacral spine. IMPRESSION: No findings within the abdomen or pelvis to suggest the presence of obstruction. No acute pathology is appreciated. Reviewed, dictated and finalized at location A. IMPRESSION: No findings within the abdomen or pelvis to suggest the presence of obstruction . No acute pathology is appreciated.
[2024-08-30 20:33] VITALS: BP 131/81; PULSE 97; RESP 16; TEMP 37.3; O2SAT 98
--- OUTSIDE RECORDS SUMMARY | 2024-08-30 20:33 | XMS_ITS | Clinical Summary ---
Author Organization [employer] [facility] Address [address] [place] [address] Care Team Providers Care Strategic Business Development Name Role Phone Unavailable Primary Care Provider Unavailabl e Medications oxyCODONE-aceta minophen (PERCOCET) 5-325 mg tabletIndicatio ns:Nephrocalcin osis,Kidney stone Take 1 Tablet by mouth every 8 hours as needed for Pain, Moderate. Max Daily Amount: 3 Tablets 12 Tablet 12/25/2023 Active Encounters Date Type Department Care Team Description 08/09/2024 External Device Data [facility]CTION Provider, Abstract 07/27/2024 External Device Data [facility] Provider, Abstract 07/19/2024 External Device Data [facility] Provider, Abstract 07/19/2024 External Device Data [facility] Provider, Abstract 07/16/2024 External Device Data [facility] Provider, Abstract 07/15/2024 External Device Data [facility] Provider, Abstract 07/12/2024 External Device Data [facility] Provider, Abstract 06/28/2024 External Device Data [facility] Provider, Abstract 06/07/2024 External Device Data [facility] Provider, Abstract 06/07/2024 External Device Data [facility] Provider, Abstract 06/07/2024 External Device Data [facility] Provider, Abstract 06/01/2024 External Device Data [facility] Provider, Abstract 06/01/2024 External Device Data [facility]STRACTION Provider, Abstract from Last 3 Months Social History Tobacco Use Types Packs/Day Years Used Date Smoking Tobacco: Never Smokeless Tobacco: Never Tobacco Cessation:Counseling Given: Not Answered Alcohol Use Standard Drinks/Week Comments Never 0 (1 standard drink = 0.6 oz pur e alcohol) Feeling Safe Answer Date Recorded Are you in a relationship wi th someone who hurts you emotionally and/or physically? No 12/25/2023 Comments Unknown Sex and Gender Information Value Date Recorded Sex Assigned at Not on file Legal Sex Female 3:23 PM LEAD RAMP AGENT Gender Identity Not on file Sexual Orientation Not on file Last Filed Vital Signs Vital Sign Reading Time Taken Comments Blood Pressure 124/88 12/25/2023 9:20 PM CDT Pulse 73 12/25/2023 9:20 PM CDT Temperature 36.7 C (98.1 F) 12/25/2023 4:06 PM CDT Respiratory Rate 16 12/25/2023 4:06 PM CDT Oxygen Saturation 99% 12/25/2023 9:20 PM CDT Inhaled Oxygen Concentration - - Weight 61.2 kg (135 lb) 12/25/2023 4:06 PM CDT Height 157.5 cm (5' 2 ) 12/25/2023 4:06 PM CDT Body Mass Index 24.69 12/25/2023 4:06 PM CDT Plan of Treatment Health Maintenance Due Date Last Done Comments DIABETES ANNUAL FOOT EXAM 10/19/2001 DIABETES MICROALBUMIN ANNUAL SCREEN 10/19/2001 LDL CHOLESTEROL ANNUAL 10/19/2001 HPV/Cotest (21-29) 10/19/2004 HPV/Cotest (30-65) 10/19/2013 CERVICAL CANCER SCREENING 10/27/2017 PAP SMEAR 10/27/2017 10/27/2014, 12/19/2008 BREAST CANCER SCREENING 2023 INFLUENZA VACCINE (#1) 2023 , 02/26/2021, 07/13/2020, Additional history exists COVID-19 Vaccine (2023-2 5 season) 2024 02/17/2021, 01/18/2021 DIABETES HBA1C Q 6 MONTHS 06/03/2024 12/02/2023 DIABETES ANNUAL RETINAL EXAM 06/18/2024 06/18/2023, 06/17/2023 DTAP/TDAP/TD VACCINES (3 - T d or Tdap) 08/21/2031 08/20/2021, 08/07/2011, 08/07/2011, Additional history exists HEPATITIS B VACCINES Completed 07/18/2003, 07/18/2003, 01/28/2003, Additional history exists HPV VACCINES Completed 10/19/2008, 10/09, 10/26/2007, Additional history exists Insurance [facility]
--- OUTSIDE RECORDS SUMMARY | 2024-08-30 20:33 | XMS_ITS | Referral Summary ---
Author Organization [facility] Address [address] [place] [address] Care Team Providers Care Commercial Analyst Name Role Phone No, Physician Primary Care Provider Allergies Active Allergy Reactions Criticality Noted Date Comments Adhesive Rash,Swelling High 10/12/2020 Other Itching,Swelling,Rash Medium 01/21/2023 control patch Medications 25/iron fum/folic/dha (-1 ORAL)Indications:f or supplement nightly Active omeprazole OTC (PriLOSEC OTC) 20 mg EC tabletIndications: Treatment of Non-Bleeding Gastric Disorder,GERD Take 1 tablet (20 mg total) by mouth 2 (two) times a day Active metFORMIN (GLUCOPHAGE) 500 mg tabletIndications: type 2 diabetes mellitus Take 1 tablet (500 mg total) by mouth 2 (two) times a day with meals Active dextroamphetamine- amphetamine (ADDERALL) 10 mg tabletIndications: Attention-Deficit Hyperactivity Disorder 4 tablets (40 mg total) every morning Active DULoxetine DR (CYMBALTA) 20 mg capsuleIndications :Anxiety with Depression Take 2 capsules (40 mg total) by mouth nightly Active SITagliptin (JANUVIA) 50 mg tabletIndications: type 2 diabetes mellitus Take 1 tablet (50 mg total) by mouth every morning Active docusate sodium (COLACE) 100 mg capsuleIndications :constipation Take 1 capsule (100 mg total) by mouth 2 (two) times a day For constipation. Hold if having loose stools or diarrhea. 30 capsule 1 2 Active celecoxib (CeleBREX) 100 mg capsuleIndications :Osteoarthritis Take 2 capsules (200 mg total) by mouth 2 (two) times a day 56 capsule 2 Active guanFACINE (TENEX) 1 mg tablet Take 1 tablet (1 mg total) by mouth nightly Active rosuvastatin (CRESTOR) 10 mg tablet Take 1 tablet (10 mg total) by mouth daily Active doxylamine (UNISOM) 25 mg tablet Take 1 tablet (25 mg total) by mouth nightly as needed for sleep Active Active Problems Problem Noted Date Diagnosed Date Sleep disorder 10/02/2022 Assessment & Plan (12/18/2022 2:54 PM CDT): Most recent sleep study September 2022 did not meet CPAP criteria during the 1st 2 hours of sleep. Mild obstructive sleep apnea. AHI over 6. No sustained oxyhemoglobin desaturation. No evidence for parasomnia. Did not achieve REM sleep. Discussed treatment options including auto CPAP, mandibular advancement device. Would not meet criteria for hypoglossal nerve stimulation. Positional therapy not effective for her. She deliberately sleeps on her back. Has chronic pain when on her side. Information provided for mandibular advancement. Assessment & Plan (10/02/2022 1:41 PM CDT): . History of mild sleep apnea. CPAP at 6 cm of water was therapeutic during the titration. She is had difficulty with mask fit, compliance and has not been using her device lately. Complains of snoring, apnea, daytime sleepiness. Her partner also notes unusual movement while in bed, kicking, crying out. There was a suspicion possible REM behavior disorder, currently not treated. Suggest repeat laboratory polysomnogram with sleep staging. Mild obstructive sleep apnea may warrant treatment with a mandibular advancement device rather than CPAP. Sleep staging, video will allow potential diagnosis of REM behavior disorder although I am suspect. Medical treatment with melatonin, clonazepam would be considerations. REM behavioral disorder 01/06/2022 Assessment & Plan (01/06/2022 2:27 PM CDT): Few episodes of yelling and screaming She does not view this as a big problem at this time. Follow for now Nontraumatic incomplete tear of right rotator cu ff 10/09/2021 Overview (10/09/2021): Added automatically from request for surgery [id number] AC joint arthropathy 10/09/2021 Overview (10/09/2021): Added automatically from request for surgery [id number] Pain in extremity 02/01/2021 Chronic pain of left knee 10/15/2020 Chronic pain of right knee 10/15/2020 Resolved Problems Problem Noted Date Diagnosed Date Resolved Date JOHANN (obstructive sleep apnea) 01/06/2022 10/02/2022 Assessment & Plan (01/06/2022 2:26 PM CDT): JOHANN dx'd elsewhere Non complaint with CPAP Nocturia is a symptom of untreated JOHANN, so will need to be more compliant with CPAP as a first step. Social History Tobacco Use Types Packs/Day Years Used Date Smoking Tobacco: Never Smokeless Tobacco: Never Tobacco Cessation:Counseling Given: Not Answered AUDIT-C Answer Date Recorded Q1: How often do you have a drink containing alcohol? Never 01/21/2023 Q2: How many drinks containi ng alcohol do you have on a typical day when you are drinking? Patient does not drink Q3: How often do you have si x or more drinks on one occasion? Never 01/21/2023 Personal Safety Answer Date Recorded Getting School Help Needed Not on file 02/27 Comments No Sex and Gender Information Value Date Recorded Sex Assigned at Not on file Legal Sex Female 3:14 PM CDT Gender Identity Female 10/15/2021 12:37 PM CDT Sexual Orientation Straight 10/11/2020 12 :19 PM CDT Last Filed Vital Signs Vital Sign Reading Time Taken Comments Blood Pressure 114/85 08/10/2023 8:38 AM CDT Pulse 77 08/10/2023 8:38 AM CDT Temperature 37 C (98.6 F) 12/18/2022 2:45 PM CDT Respiratory Rate 20 08/10/2023 8:38 AM CDT Oxygen Saturation 98% 02/09/2023 4:22 PM CDT Inhaled Oxygen Concentration - - Weight 67.1 kg (148 lb) 12/22/2023 9:40 AM CDT Height 157.5 cm (5' 2 ) 12/22/2023 9:40 AM CDT Body Mass Index 27.07 12/22/2023 9:40 AM CDT Plan of Treatment Not on file Goals Goal Patient Goal Type Associated Problems Recent Progress Patient-Stated? Author CCM Chronic Pain Care Plan Chronic Care Management Improving( 3:49 PM CDT) No Nicole Sutton RN Note: Problem: Chronic Pain Goals: 1. Minimize further functional decline 2. Maximize quality of life 3. Control pain Strategies: - Activity/exercise program recommendation - Conservative stepwise pain medicine strategy with multi-disciplinary approach - Recommend healthy lifestyle strategies and compensatory methods as needed Medical Devices Implanted Type Area Integrity Director Device Identifier Shelf Expiration Date Model / Serial / Lot [employer] Set Implant Ar[employer]rex Fibertak Biceps Sterile Latex Free Ar-3670 - [id number] Implanted:Qty: 1 on 10/29/2021 by Jefe Hinds MD at [facility] Right: Shoulder [employer] 08/08/2026 AR-3670 / / [id number] Description:[employer] SET IMPLANT AR[employer]REX FIBERTAK BICEPS STERILE LATEX FREE AR-3670 - [id number] Procedures Procedure Name Priority Date/Time Associated Diagnosis Comments HEPATITIS C ANTIBODY Routine 12/28/2020 11:09 AM CDT Polyarthritis from Last 3 Months or Most Recently Relevant to Health Maintenance Results * Hepatitis C antibody (12/28/2020 11:09 AM CDT) Hep C Ab Nonreactive Nonreactive [facility] Comment:Antibodies to HCV no t detected. Does NOT exclude the possibility of recent exposure to HCV. Blood 12/28/2020 11:0 9 AM CDT 12/28/2020 1:49 PM CDT us Can Quinn Gil MD PhD LAB MICROBIOL OGY - GENERAL ORDERABLES Edited Result - Final [facility] Department [place] [address] from Last 3 Months or Most Recently Relevant to Health Maintenance Insurance [facility] Member Subscriber Plan / Payer (Ef fective 2022-Present) Name:Ledy Leyva Relation to Subscriber:Self Name:Ledy Leyva Payer ID:[id number] (NAIC) Group ID:Not on file Type: Address: [place] [id number] [facility] Care Teams Commercial Analyst Relationship Specialty Start Date End Date No, Physician PCP - General 01/19/24
--- OUTSIDE RECORDS SUMMARY | 2024-08-30 20:33 | XMS_ITS | Encounter Summary ---
Author Organization [facility] Address [address] [place] [address] Care Team Providers Care Inside Steward/Stewardess Name Role Phone Alexis Barrera Primary Care Provider [phone] Raphael Gomez [facility] Primary Care Provider [phone] Sly Graham Primary Care Provider Unknown, Notinfile Primary Care Provider Unavail able No, Physician Primary Care Provider [phone] Encounter Details Date Type Department Care Team (Late st Contact Info) Description 09/05/2021 Telephone [facility] [address] [facility] [address] [place] [address] Inés Laughlin MD PhD [address] [place], [place] [id number] Social History Tobacco Use Types Packs/Day Years Used Date Smoking Tobacco: Never Smokeless Tobacco: Never AUDIT-C Answer Date Recorded Q1: How often do you have a drink containing alc ohol? Monthly or less 08/27/2021 Q2: How many drinks containi ng alcohol do you have on a typical day when you are drinking? 1 or 2 08/27/2021 Q3: How often do you have si x or more drinks on one occasion? Less than monthly 08/27/2021 Comments No Sex and Gender Information Value Date Recorded Sex Assigned at Not on file Legal Sex Female 3:14 PM CDT Gender Identity Female 10/15/2021 12:37 PM CDT Sexual Orientation Straight 10/11/2020 12 :19 PM CDT documented as of this encounter Plan of Treatment Not on file documented as of this encounter Goals Goal Patient Goal Type Associated Problems Recent Progress Patient-Stated? Author CCM Chronic Pain Care Plan Chronic Care Management Improving( 3:49 PM CDT) Nicole Harris, RN Note: Problem: Chronic Pain Goals: 1. Minimize further functional decline 2. Maximize quality of life 3. Control pain Strategies: - Activity/exercise program recommendation - Conservative stepwise pain medicine strategy with multi-disciplinary approach - Recommend healthy lifestyle strategies and compensatory methods as needed documented as of this encounter Visit Diagnoses Not on filedocumented in this encounter Care Teams Inside Steward/Stewardess Relationship Specialty Start Date End Date Alexis Barrera PA PCP - General Physician Environmental Coordinator 09/27/20 03/09/22 [facility] [address], [place] [id number] PCP - General 03/10/22 09/07/22 Sly Graham PA [address], [place] [id number] PCP - General Physician Environmental Coordinator 09/08/22 06/07/23 Unknown, Notinfile PCP - General 07/29/23 01/18/24 No, Physician PCP - General 01/19/24 documented as of this encounter
--- OUTSIDE RECORDS SUMMARY | 2024-08-30 20:33 | XMS_ITS | Clinical Summary ---
Author Organization [facility] Address [address] [place] [address] Care Team Providers Care Outside B2B Sales Name Role Phone No, Physician Primary Care Provider [phone] Allergies Active Allergy Reactions Criticality Noted Date [...] (10/09/2021): Added automatically from request for surgery [id number] AC joint arthropathy 10/09/2021 Overview (10/09/2021): Added automatically from request for surgery [id number] Pain in extremity 02/01/2021 Chronic pain of [...] compliant with CPAP as a first step. Surgical History Surgery Date Site/Laterality Comments WRIST SURGERY 05/11/2015 - 05/10/2016 Right KNEE SURGERY 05/11/2008 - 05/10/2009 Right ANKLE SURGERY 05/11/2014 - 05/10/2015 Left ABSCESS DRAINAGE 05/11/2018 - 05/10/2019 WISDOM TOOTH EXTRACTION 05/11/2003 - 05/10/2004 TOOTH EXTRACTION 05/11/2017 - 05/10/2018 molar FLUORO GUIDED INJECTION SHOULDER RIGHT 04/14/2022 Ri ght FLUORO GUIDED INJECTION SHOULDER RIGHT 09/12/2022 Ri ght EPIDURAL INJECTION RIGHT CER VICAL THORACIC 1 LEVEL 12/17/2022 Right FLUORO GUIDED INJECTION SHOULDER RIGHT 08/10/2023 Ri ght FLUORO GUIDED ASPIRATION OR INJECTION INTERMEDIATE JOINT RIGHT 08/10/2023 Right Medical History Medical History Date Comments Hip pain Abdominal pain Diabetes mellitus (HCC) reports last A1C 6.7 in 06/2020 GERD (gastroesophageal reflux disease) well controlled on meds Awareness under anesthesia jaz price foot surgery Sleep apnea wears CPAP Anxiety Dyspareunia in female Loss of libido Hypertension Ovarian cyst Adhd OCD (obsessive compulsive disorder) Obsessive compulsive personality disorder (HCC) Adjustment disorder Family History Medical History Relation Name Comments Chronic Pain Father Alejandro Hypertension Father Alejandro Diabetes Mother Clair Diabetes Other 1 aunt Diabetes Other 2 uncle Mental illness Other 3 general fmhx Obesity Other 3 general fmhx neurologic disease Other 3 general fmhx Anesthesia problems Neg Hx Relation Name Status Comments Father Alejandro Mother Clair Other 1 aunt Other 2 uncle Other 3 general fmhx Social History Tobacco Use Types Packs/Day Years [...] Orientation Straight 10/11/2020 12 :19 PM CDT Obstetrics History Last Filed Vital Signs Vital Sign Reading [...] 12/22/2023 9:40 AM CDT Plan of Treatment Health Maintenance Due Date Last Done Comments Breast Cancer Screening-Mammogram 1983 Cervical Cancer Screening 1983 Depression Screening 1983 DTaP/Tdap/Td Vaccine (1 - Tdap) 10/19/1994 Varicella Vaccines (1 of 2 - 13+ 2-dose series) 10/19/1996 Hepatitis B Screening 10/19/2001 Regular Well Visit/Exam 18-64 10/19/2001 Covid-19 Vaccine (2023-2 5 season) 2024 02/17/2021, 01/18/2021 Influenza Vaccine (#1) 2024 Hepatitis C Screening Completed 12/28/2020 HPV Vaccines Aged Out No longer eligi ble based on patient's age to complete this topic Pneumococcal vaccine <65 Aged Out No longer eligible based on patient's age to complete this topic Goals Goal Patient Goal Type Associated Problems [...] as needed Medical Devices Implanted Type Area Pipe Line Inspector Device Identifier Shelf Expiration Date Model / Serial / Lot [employer] Set Implant [employer]rex Fibertak Biceps Sterile Latex Free Ar-3670 - [id number] Implanted:Qty: 1 on 10/29/2021 by Jefe Hinds MD at [facility] Right: Shoulder [employer] 08/08/2026 AR-3670 / / [id number] Description:[employer] SET IMPLANT AR[employer]REX FIBERTAK BICEPS STERILE LATEX FREE AR-3670 - [id number] Procedures Procedure Name Priority Date/Time Associated Diagnosis Comments HEPATITIS C ANTIBODY Routine 12/28/2020 11:09 AM CDT Polyarthritis from Last 3 Months or Most Recently Relevant to Health Maintenance Results * Hepatitis C antibody (12/28/2020 11:09 AM CDT) Hep C Ab Nonreactive Nonreactive [facility] Comment:Antibodies to HCV no t detected. Does NOT exclude the possibility of recent exposure to HCV. Blood 12/28/2020 11:0 9 AM CDT 12/28/2020 1:49 PM CDT us Can Quinn Gil MD PhD LAB MICROBIOL OGY - GENERAL ORDERABLES Edited Result - Final [facility] Department [place] [address] from Last 3 Months or Most Recently Relevant to Health Maintenance Insurance [facility] Care Teams Outside B2B Sales Relationship Specialty Start Date End Date No, Physician PCP - General 01/19/24
--- OUTSIDE RECORDS SUMMARY | 2024-08-30 20:34 | XMS_ITS | Encounter Summary ---
Author Organization [facility] Address [address] [facility] [address] [place] [address] Phone Care Team Providers Care Historical Guide Name Role Phone Alexis Barrera Primary Care Provider [phone] Raphael Gomez [facility] Primary Care Provider Sly Graham Primary Care Provider Unknown, Notinfile Primary Care Provider Unavail able No, Physician Primary Care Provider [phone] Encounter Details Date Type Department Care Team (Late st Contact Info) Description 02/01/2021 Orders Only [facility] Scanning, Provider Social History Tobacco Use Types Packs/Day Years Used Date Smoking Tobacco: Never Smokeless Tobacco: Never AUDIT-C Answer Date Recorded Q1: How often do you have a drink containing alc ohol? Monthly or less 02/01/2021 Q2: How many drinks containi ng alcohol do you have on a typical day when you are drinking? 1 or 2 02/01/2021 Q3: How often do you have si x or more drinks on one occasion? Never 02/01/2021 Comments No Sex and Gender Information Value Date Recorded Sex Assigned at Not on file Legal Sex Female 3:14 PM CDT Gender Identity Female 10/15/2021 12:37 PM CDT Sexual Orientation Straight 10/11/2020 12 :19 PM CDT documented as of this encounter Functional Status documented as of this encounter Plan of [...] as needed documented as of this encounter Procedures Procedure Name Priority Date/Time Associated Diagnosis Comments SCAN - RADIOLOGY/IMAGING 02/01/2021 documented in this encounter Results * SCAN - RADIOLOGY/IMAGING (02/01/2021) Anatomical Region Laterality Modality Other us Provider Scanning Edited Result - Final documented in this encounter Visit Diagnoses Not on filedocumented in this encounter Care Teams Historical Guide Relationship Specialty Start Date End Date Alexis Barrera PA PCP - General Physician Sky [place] 09/27/20 03/09/22 [facility] [address] [place] [address] PCP - General 03/10/22 09/07/22 Sly Graham PA [address] [place] [address] PCP - General Physician Sky Cap 09/08/22 06/07/23 Unknown, Notinfile PCP - General 07/29/23 01/18/24 No, Physician PCP - General 01/19/24 documented as of this encounter
--- OUTSIDE RECORDS SUMMARY | 2024-08-30 20:34 | XMS_ITS | Clinical Summary ---
Author Organization [facility] Address [facility] [place] [address] Care Team Providers Care Driver Messenger Name Role Phone Nisha Bro MD Primary Care Provider [phone] Social History Tobacco Use Types Packs/Day Years Used Date Smoking Tobacco: Never Assessed Comments Unknown Sex and Gender Information Value Date Recorded Sex Assigned at Not on file Legal Sex Female 7:26 AM CDT Gender Identity Not on file Sexual Orientation Not on file Plan of Treatment Health Maintenance Due Date Last Done Comments Cervical Cancer Screening Pa p Smear (Age 30 to 64) Every 3 Years 1983 Annual Physical 10/19/1986 Hepatitis C 10/19/2001 DTaP, Tdap and Td Vaccines ( 1 - Tdap) 10/19/2002 Hepatitis B Vaccines (1 of 3 - 19+ 3-dose series) 10/19/2002 Cervical Cancer Screening Pa p with HPV Testing (Age 30 to 64) Every 5 Years 10/19/2013 Cervical Cancer Screening with HPV 10/19/2013 Mammogram Screening 2023 COVID-19 Vaccine (2023-2 5 season) 2024 01/18/2021 HPV Vaccines Aged Out No longer eligi ble based on patient's age to complete this topic Meningococcal B Vaccine Aged Out No l onger eligible based on patient's age to complete this topic Meningococcal Vaccine Aged Out No sridhar meghna eligible based on patient's age to complete this topic Pneumococcal Vaccine: Pediat rics (0 to 5 Years) and At-Risk Patients (6 to 49 Years) Aged Out No longer eligi ble based on patient's age to complete this topic RSV Immunizations Under 20 Months Aged Out No longer eligible based on patient's age to complete this topic Insurance Care Teams Driver Messenger Relationship Specialty Start Date End Date Nisha Bro MD [address] [place] [address] PCP - General OBGYN 11/16/20
--- OUTSIDE RECORDS SUMMARY | 2024-08-30 20:34 | XMS_ITS | Data Portability ---
Author Organization [place] - [facility] OFFICE Address [address] [place] [address] Care Team Providers Care Rouge Mixer Name Role Phone KLARISSA BALTAZAR, [facility] Primary Care Provider [phone] Assessment Encounter Date Assessment Date Assessment LastModified by Organization Details LastModified Time 12/11/2022 12/11/2022 Patient Examined by RACHELLE Urrutia, Also Documentation reviewed and approved by supervising physician juan Not available 12/11/2022 11:13:46 Plan of Treatment Reminders Order Date Submit Date Provider Last Modified By Organization Details Last Modified Time Details Appointments None recorded. Lab None recorded. Referral None recorded. Procedures None recorded. Surgeries None recorded. Imaging electrocard iogram 2022 023 [email or web address] Not available 18:13:55 Medication Orders Crestor 10 mg tablet 2022 023 [facility], [address] [place] [address], [address], 11:11:34 Patient TargetsNo targets recorded. Patient Instructions Encounter Date Encounter Id Patient Instructions Last Modified By Organization Details Last Modified Time 08/28/2022 [id number] Weight loss 20 pounds Exercise advised Low cholesterol diet advised Low sodium diet advised. [email or web address] Not available 08/28/2022 11:10:02 12/11/2022 [id number] Exercise advised Low cholesterol diet advised Low sodium diet advised. [email or web address] Not available 12/11/2022 11:20:38 Reason for Referral None Reported. Results Created Date Observation Date Name Description Value Unit Range Abnormal Flag Note LastModifiedBy Organization Detail LastModifiedTime 09/02/1908/28/2022 carol villanuevagr am No observ ation record ed. [email or web address] Not Available 2022 09:52:22 12/11/19 23 11/25/2022 exerc luis f sampson s echoc ardio gram No observ ation record ed. [email or web address] Not Available 2022 10:35:14 Result Notes None recorded. Problems Name Problem SNOMED Code Status Onset Date Resolution Date Notes Provider Name and Address Organization Details Recorded Time Atypical chest pain 855474313 Active 2022 Tejada Mesto null, [place] - [facility] 3 17:00:07 Tachycardia 6171264 Active 2022 Tejada Mesto [place], [place] - [facility] 3 17:00:13 Dyslipidemia 691982147 Active 2022 Tejada Mesto [place], [place] - [facility] 3 17:00:21 Atypical chest pain 388590988 Active 2022 Tejada Mesto [place], [place] - [facility] 3 17:04:09 Essential hypertension 26040360 Active 2022 Tejada Mesto [place], [place] - [facility] 3 08:27:47 Problem Notes None recorded. Procedures Surgical History Date Name Laterality Status Provider Name and Address Organization Details Recorded Time 2 [facility] [place] [facility] 08/28/2022 10:33:43 6 procedure on ankle completed [facility] [place] [facility] 08/28/2022 10:34:13 5 procedure on wrist completed [facility] [place] - [facility] 08/28/2022 10:33:56 9 Knee arthroscopy/lopez rgery completed [facility] [place] - [facility] 08/28/2022 10:32:43 Imaging Results Imaging Date Name Status LastModified by Organization Details LastModified Time 08/28/2022 electrocardiogram completed Informa tion not available 09/01/2022 09:52:22 11/25/2022 exercise stress echocardiogram completed Information not available 12/10/2022 10:35:14 Procedure Notes None recorded. Medical Equipment None Reported. Allergies Allergen ID Allergen Name Allergen Category Reaction Reaction Severity Criticality Documentation Date Start Date Code Code System Note Provider Name and Address Organization Details Recorded Time 37816 adhesive environme nt,medica tion rash moderate high 08/28/2022 29318 UNK NEVIN GAONA null, [place] - [facility] 3 10:29:46 Medications Name Sig Start Date Stop Date Status Note LastModified by Organization Details LastModified Time celecoxib 200 mg capsule active Not Available Not Available Not Available Adderall 20 mg tablet Take 1 tablet every day by oral route. active Not Available Not Available No t Available clonidine HCl 0.1 mg tablet Take 0.5 tablets twice a day by oral route. active Not Available Not Available No t Available doxycyclin e hyclate 100 mg capsule active Not Available Not Available Not Available labetalol 200 mg tablet active Not Available Not Available Not Available atorvastat in 10 mg tablet Take 1 tablet every day by oral route. 12/11 completed Not Available Not Available Not Available benzonatat e 200 mg capsule TAKE 1 CAPSULE BY MOUTH THREE TIMES DAILY NEEDED active pt is no longer taking 08/28/22 SA Not Available Not Available Not Available hydrocodon e 5 mg-acetami nophen 325 mg tablet TAKE 1 TO 2 TABLETS BY MOUTH EVERY 4 HOURS NEEDED FOR PAIN active pt is no longer taking 08/28/22 SA Not Available Not Available Not Available ondansetro n HCl 4 mg tablet active pt is no longer taking 08/28/22 SA Not Available Not Available Not Available prednisone 20 mg tablet TAKE 2 TABLETS BY MOUTH EVERY DAY FOR 5 DAYS 08/28 completed pt is no longer taking 08/28/22 SA Not Available Not Available Not Available dextroamph etamine-am phetamine 10 mg tablet Take 1 tablet every day by oral route. active Not Available Not Available No t Available valacyclov ir 500 mg tablet Take 1 tablet twice a day by oral route. 08/28 completed Not Available Not Available Not Available Adderall XR 30 mg capsule,ex tended release active Not Available Not Available Not Available metformin 1,000 mg tablet Take 1 tablet twice a day by oral route. active Not Available Not Available No t Available docusate sodium 100 mg capsule TAKE 1 CAPSULE BY MOUTH TWICE DAILY FOR CONSTIPA TION. HOLD IF HAVING LOOSE STOOLS OR DIARRHEA . active Not Available Not Available No t Available gabapentin 300 mg capsule active Not Available Not Available Not Available omeprazole 20 mg capsule,de layed release Take 1 capsule every day by oral route. active Not Available Not Available No t Available mupirocin 2 % topical ointment APPLY TOPICALL Y TO RIGHT SHOULDER TWICE DAILY active Not Available Not Available No t Available zolpidem 10 mg tablet active Not Available Not Available Not Available celecoxib 100 mg capsule active Not Available Not Available Not Available ondansetro n 4 mg disintegra ting tablet active Not Available Not Available Not Available amoxicilli n 875 mg-potassi um clavulanat e 125 mg tablet TAKE 1 TABLET BY MOUTH TWICE DAILY FOR 10 DAYS active pt is no longer taking 08/28/22 SA Not Available Not Available Not Available oxycodone 5 mg tablet TAKE 1 TO 2 TABLETS BY MOUTH EVERY 4 HOURS NEEDED FOR PAIN 08/28 completed Not Available Not Available Not Available Premarin 0.625 mg/gram vaginal cream active Not Available Not Available Not Available rosuvastat in 10 mg tablet Take 1 tablet every day by oral route. active Not Available Not Available No t Available duloxetine 20 mg capsule,de layed release Take 1 capsule twice a day by oral route. active Not Available Not Available No t Available Isabel-D 24 Hour 180 mg-240 mg tablet,ext ended release TAKE 1 TABLET BY MOUTH DAILY FOR 20 DAYS active Not Available Not Available No t Available pregabalin 75 mg capsule active Not Available Not Available Not Available pregabalin 150 mg capsule Take 1 capsule twice a day by oral route. active Not Available Not Available No t Available fluvoxamin e ER 150 mg capsule,ex tended release 24 hr active Not Available Not Available Not Available guanfacine ER 1 mg tablet,ext ended release 24 hr active Not Available Not Available Not Available Vitamin D2 once a day 04/12 completed Not Available Not Available Not Available Trulicity 1.5 mg/0.5 mL subcutaneo us pen injector active Not Available Not Available Not Available Trulicity 0.75 mg/0.5 mL subcutaneo us pen injector active Not Available Not Available Not Available Drysol 20 % topical solution active Not Available Not Available Not Available Vitals Date Recorded Body height Body mass index (BMI) Body weight Body weight Oxygen saturation Oxygen saturation in Arterial blood by Pulse oximetry Heart rate Systolic blood pressure Diastolic blood pressure Provider Name and Address Organization Details Last Updated DateTime 3 157.48 cm 30.6 kg/m2 45529 g 07073.7 8 g 98 % 98 % 78 /min 120 mm[Hg] 80 mm[Hg] NEVIN GAONA [facility] 3 10:41:26 Date Recorded Body height Body mass index (BMI) Body weight Oxygen saturation Oxygen saturation in Arterial blood by Pulse oximetry Heart rate Systolic blood pressure Diastolic blood pressure Provider Name and Address Organization Details Last Updated DateTime 3 157.48 cm 28.9 kg/m2 34041.5 9 g 98 % 98 % 85 /min 138 mm[Hg] 96 mm[Hg] NEVIN GAONA [facility] 3 10:39:50 Social History Question Answer Notes LastModified by Organizat ion Details LastModified Time Tobacco Smoking Status [facility] 10:31:18 What Is Your Level Of Alcohol Consumption? None [email or web address] Information not available 08/28/2022 Are You Blind Or Do You Have Difficulty Seeing? No Information n ot available 08/28/2022 What Is Your Level Of Caffeine Consumption? Occasional Information not available 08/28/2022 In The 14 Days Before Symptom Onset, Have You Had Close Contact With A Laboratory-confirm ed COVID-19 While That Case Was Ill? No [email or web address] Information n ot available 08/28/2022 In The 14 Days Before Symptom Onset, Have You Had Close Contact With A Person Who Is Under Investigation For COVID-19 While That Person Was Ill? No [email or web address] Information not available 08/28/2022 Have You Been To An Area Known To Be High Risk For COVID-19? No Information not available 08/28/2022 Are You Deaf Or Do You Have Serious Difficulty Hearing? No [email or web address] Information not available 08/28/2022 What Type Of Diet Are You Following? DIABETIC [email or web address] Information n ot available 08/28/2022 Have You Processed Blood Or Body Fluids From An Ebola Virus Disease Patient Without Appropriate PPE? No [email or web address] Information not available 08/28/2022 Do You Reside In Or Have You Traveled To An Area Where Ebola Virus Transmission Is Active? No [email or web address] Information not available 08/28/2022 How Many Children Do You Have? 0 [email or web address] Information not available 08/28/2022 What Is Your Relationship Status? [email or web address] Information not available 08/28/2022 Do You Use Your Seat Belt Or Car Seat Routinely? Yes [email or web address] Information not available 08/28/2022 Do You Feel Stressed (tense, Restless, Nervous, Or Anxious, Or Unable To Sleep At Night)? [id number] [email or web address] Information not available 08/28/2022 Do You Use Any Illicit Or Recreational Drugs? No [email or web address] Information not available 08/28/2022 Do You Or Have You Ever Used Any Other Forms Of Tobacco Or Nicotine? No Information not available 08/28/2022 Sex: Unknown Functional Status Question Answer Note LastModified by Organizat ion Details LastModified Time Do you have difficulty walking or climbing stairs? No [email or web address] Information not available 08/28/2022 Do you have difficulty doing errands alone? No [email or web address] Information not available 08/28/2022 Do you have difficulty dressing or bathing? No [email or web address] Information not available 08/28/2022 What is your exercise level? Occasional [email or web address] Information not available 08/28/2022 Mental Status Question Answer Note LastModified by Organization D etails LastModified Time Do you have difficulty concentrating, remembering or making decisions? No [email or web address] Information no t available 08/28/2022 Family History Relationship Description Onset Age of this Age Resolved Age Notes LastModified by Organization Details LastModified Time Mother Diabetes mellitus [email or web address] Not available 08/28 10:30:06 Father Hypertensive disorder [email or web address] Not available 08/28 10:30:14 Medical History No medical history recorded. Gynecological HistoryNo gynecological history recorded. Obstetrics History GPAL:G 0 P 0 0 0 0 Past Encounters Encounter ID Performer Location Encounter Start Date Encounter Closed Date Diagnosis/Indication Diagnosis SNOMED-CT Code Diagnosis ICD10 Code Diagnosis Note [id number] Jeremy Wyatt MD [place] OFFICE [facility] [place] [address] 08/28/2022 09:42:26 08/28/2022 11:17:23 Atypical chest pain 491961565 R07.89 Will get exercise stress echo, to look for any structural heart disease, and to look for any ischemia Tachycardia 5024645 R00. 0 Will consider Toprol Dyslipidemia 900209545 E 78.5 Needs to keep LDL less than 70, and HDL more than 40LDL 122Will change to Crestor 10 [id number] RONNIE REAGAN [place] OFFICE [address] [place] [address] 12/11/2022 10:27:37 12/11/2022 11:31:15 Atypical chest pain 475187920 R07.89 negative stress test Tachycardia 3772812 R00. 0 will consider metop Dyslipidemia 775159819 E 78.5 Needs to keep LDL less than 70, and HDL more than 40LDL 122continu e with Crestor 10 Essential hypertension 52992762 I10 clinidine half a pill of 0.1 BID daily Blood pressure is elevated today, but this is only one reading, will keep close follow up, and consider medication change if blood pressure is still elevated next visit. Health Concerns Section Related Observation LastModified by Organization Detai ls LastModified Time None Recorded Concern Status LastModified by Organization Details LastModified Time None Recorded Advance Directives Directive None Recorded Payers Encounter Date Sequence Insurance Name Policy Number Policy Lr Covered Member ID Lr Member ID Guarantor Name 08/28/2022 1 [employer] - [employer] PRIOR TO 2024 - [employer] () Ledy Vega [id number] Ledy Vega 12/11/2022 1 [employer] - [employer] PRIOR TO 2024 - [employer] () Ledy Vega [id number] Ledy Vega Notes Date Note Type Note Provider Name and Address Organization Details Recorded Time 08/28/2022 text/html 08/27/22CC: PalpitationLedy VEGA is a 36 years-old Female with h/o ADHD, Hypertension, and Hyperlipidemiawas referred for cardiac evaluation due to tachycardia and Palpitation Had one episode of chest pain.Denies shortness of breath at rest. Has mild dyspnea on exertion.No orthopnea. No PNDs.Has heart palpitations.Denies dizziness. Denies syncope or near syncope.No ankle or leg edema.No major bleeding events.No reported side effects from medications. Taking medications as prescribed with no missed doses.Denies snoring, daytime somnolence and AM headache. Jeremy Wyatt MD [address] [place], [address], [facility] 08/28/2022 11:12:23 12/11/2022 text/html 12/11/22CC : Car diac follow up dyspnea on exertionLedy VEGA is a 37 years-old Female with h/o ADHD, Hypertension, type II DM and Hyperlipidemia is here for 1 month follow up. She was last seen in the clinic on 08/28/22, since then she is denied chest pain dyspnea on exertion. Last LDL was not done recently and she is taking crestor 10 mg daily. Stress test was negative. She denies ER visits and hospitalizations since she was last seen. Today reports:Denies chest pain.Denies shortness of breath at rest. Has mild dyspnea on exertion.No orthopnea. No PNDs.Denies heart palpitations.Denies dizziness. Denies syncope or near syncope.No ankle or leg edema.No major bleeding events.No reported side effects from medications. Taking medications as prescribed with no missed doses.Denies snoring, daytime somnolence and AM headache.*Last LDL was done on unknown time.Pt takes atorvastatin 10 mg. Previously:Last visit came with c/o tachycardia and Palpitation Had one episode of chest pain. RONNIE pina [facility] 12/11/2022 11:20:41 OBGyn Episode No OBEpisode recorded.
[2024-08-30 20:51] LABS: Glucose Point of Care 375 mg/dl (65-105)
--- NOTE | 2024-08-30 21:00 | ED.GENADULT ---
HPI - General Adult General Chief complaint: Abdominal Pain Stated complaint: abd pain, nausea, fever since, unable to eat Time Seen by Provider: 08/30/24 20:41 Source: patient Mode of arrival: ambulatory Limitations: no limitations History of Present Illness HPI narrative: This is a 38-year-old female who presents to ED for chief complaint abdominal pain, nausea and body aches for the past 4 days. Patient states that she has been nauseous for the past week. States that she cannot tolerate anything p.o.. States that she feels she has a lot of gas and bubbling in her abdomen. States that her sugars have been high lately but her last A1c was around 6.9. She started semaglutide about 1 year ago. States she has been out of her metformin for several weeks. Unsure of last normal bowel movement. Denies chest pain, shortness of breath, headache, neck pain, syncope, back pain, or urinary symptoms. Related Data Home Medications ?Medication ?Instructions ?Recorded ?Confirmed ?Last Taken ?Type gabapentin 300 mg capsule 300 mg PO DIRECTED 12/29/21 12/29/21 Unknown History Allergies Allergy/AdvReac Type Severity Reaction Status Date / Time No Known Allergies Allergy Verified 08/30/24 20:31 [facility] Past Medical History Medical History ADHD Diabetes mellitus Fibromyalgia GERD (gastroesophageal reflux disease) Surgical History Surgical History History of arthroscopic surgery of shoulder Social History Social History Smoking status: Never smoker Substance use: never Course Vital Signs Vital signs: Vital Signs Temperature 99.2 F 08/30/24 20:33 Pulse Rate 97 08/30/24 20:33 Respiratory Rate 16 08/30/24 20:33 Blood Pressure 131/81 08/30/24 20:33 Pulse Oximetry 98 08/30/24 20:33 Oxygen Delivery Room Air 08/30/24 20:33 Temperature 99.2 F 08/30/24 20:33 Pulse Rate 98 08/30/24 22:53 Respiratory Rate 14 08/30/24 22:53 Blood Pressure 116/81 08/30/24 22:53 Pulse Oximetry 100 08/30/24 22:53 Oxygen Delivery Room Air 08/30/24 20:33 Medical Decision Making MDM Narrative Medical decision making narrative: This is a 38-year-old female who presents to the ED for chief complaint of abdominal pain, nausea, vomiting. Vitals are normal. Exam remarkable for the above. Urinalysis shows over UTI with nitrite positive urine. POC glucose on arrival is around 400. Lab work showing mild elevation of white count 11 0. CMP shows slight anion gap no evidence of DKA. Blood sugar improved to the 200s fluids, insulin. Her potassium was on the lower range of normal so she was repleted with 20 mEq use of IV potassium. She was also given fluids antiemetics with good nausea control. She is now tolerating p.o. CT abdomen pelvis with IV contrast does not show any acute intra-abdominal findings. Presentation consistent with hyperglycemia and acute UTI. She will be given antibiotic prescription as well as refill of her metformin which she has been out of for quite some time. Patient will be discharged in stable condition. Supportive measures discussed and return precautions given. Patient is understanding and agreeable with plan for discharge with PCP follow-up. Vital Signs Vital Signs: Vital Signs Temperature 99.2 F 08/30/24 20:33 Pulse Rate 97 08/30/24 20:33 Respiratory Rate 16 08/30/24 20:33 Blood Pressure 131/81 08/30/24 20:33 Pulse Oximetry 98 08/30/24 20:33 Oxygen Delivery Room Air 08/30/24 20:33 Temperature 99.2 F 08/30/24 20:33 Pulse Rate 98 08/30/24 22:53 Respiratory Rate 14 08/30/24 22:53 Blood Pressure 116/81 08/30/24 22:53 Pulse Oximetry 100 08/30/24 22:53 Oxygen Delivery Room Air 08/30/24 20:33 Lab Data 08/30/24 20:59 08/30/24 20:59 Labs: Lab Results 08/30/24 08/30/24 08/30/24 Range/Units 20:49 20:59 21:19 WBC 11.0 H (4.5-10.0) K/mm3 RBC 4.54 (4.2-5.4) M/mm3 Hgb 11.9 L (12.0-15.0) g/dL Hct 37.1 (37.0-47.0) % MCV 81.7 (80-100) fl MCH 26.2 (26-34) pg MCHC 32.1 (32-36) g/dl RDW 13.8 (11.5-14.5) % Plt Count 364 (150-375) k/mm3 MPV 9.4 (7.4-10.4) fl Immature Gran % (Auto) 0.6 H (0-0.5) % Neut % (Auto) 85.7 H (45.5-73.1) % Lymph % (Auto) 6.8 L (18.3-44.2) % [place] % (Auto) 6.4 (2.6-8.5) % Eos % (Auto) 0.3 (0-4.4) % Baso % (Auto) 0.2 (0.2-1.2) % Lymph # (Auto) 0.75 L (0.9-3.2) K/mm3 [place] # (Auto) 0.7 H (0.1-0.6) K/mm3 Eos # (Auto) 0.0 (0-0.3) K/mm3 Baso # (Auto) 0.0 (0.0-0.1) K/mm3 Abs Immat Gran (auto) 0.07 H (0.00-0.031) K/mm3 Absolute Neuts (auto) 9.5 H (1.3-6.7) K/mm3 Absolute Nucleated RBC 0.000 (0.0-0.012) K/mm3 Nucleated RBC % 0.0 (0.0-0.2) % Sodium 135 L (137-145) mmol/L Potassium 3.7 (3.4-5.0) mmol/L Chloride 95 L (98-107) mmol/L Carbon Dioxide 25 (22-30) mmol/L Anion Gap 15 H (4-12) mmol/L BUN 8 (7-17) mg/dL Creatinine 0.72 (0.7-1.0) mg/dL Estim Creat Clear Calc 71 ml/min Estimated GFR > 60 (59 - ) Glucose 386 H (65-110) mg/dL POC Capillary Glucose 375 H (65-105) mg/dl Calcium 9.7 (8.4-10.2) mg/dL Magnesium 1.8 (1.6-2.3) mg/dL Total Bilirubin 0.6 (0.2-1.3) mg/dL AST 24 (14-36) U/L ALT 35 (6-35) U/L Alkaline Phosphatase 146 H (38-126) U/L Total Creatine Kinase 42 (30-135) U/L Total Protein 8.0 (6.3-8.2) g/dL Albumin 4.2 (3.5-5.1) g/dL Lipase 57 (23-300) U/L Urine Color Yellow (Yellow) Urine Appearance Cloudy H (Clear) Urine pH 5.5 (5.0-9.0) Ur Specific Patriot 1.022 (1.001-1.035) Urine Protein 1+ H (Negative) mg/dL Urine Glucose (UA) 3+ H (Negative) mg/dL Urine Ketones Trace H (Negative) mg/dL Ur Blood (Man) 1+ H (Negative) Urine Nitrate Positive H (Negative) Urine Bilirubin Negative (Negative) Urine Urobilinogen 0.2 (<2.0) mg/dL Leukocyte Esterase Rfl 1+ H (Negative) MADELYN/UL Urine RBC 0-2 (0-2) /hpf Urine WBC 21-50 H (0-3) /hpf Ur Squamous Epith Cells Occasional (Few) /hpf Urine Bacteria Rare /hpf Urine Casts 0-2 POC Urine HCG, Qual (Negative) 08/30/24 08/30/24 Range/Units 22:00 22:25 WBC (4.5-10.0) K/mm3 RBC (4.2-5.4) M/mm3 Hgb (12.0-15.0) g/dL Hct (37.0-47.0) % MCV (80-100) fl MCH (26-34) pg MCHC (32-36) g/dl RDW (11.5-14.5) % Plt Count (150-375) k/mm3 MPV (7.4-10.4) fl Immature Gran % (Auto) (0-0.5) % Neut % (Auto) (45.5-73.1) % Lymph % (Auto) (18.3-44.2) % [place] % (Auto) (2.6-8.5) % Eos % (Auto) (0-4.4) % Baso % (Auto) (0.2-1.2) % Lymph # (Auto) (0.9-3.2) K/mm3 [place] # (Auto) (0.1-0.6) K/mm3 Eos # (Auto) (0-0.3) K/mm3 Baso # (Auto) (0.0-0.1) K/mm3 Abs Immat Gran (auto) (0.00-0.031) K/mm3 Absolute Neuts (auto) (1.3-6.7) K/mm3 Absolute Nucleated RBC (0.0-0.012) K/mm3 Nucleated RBC % (0.0-0.2) % Sodium (137-145) mmol/L Potassium (3.4-5.0) mmol/L Chloride (98-107) mmol/L Carbon Dioxide (22-30) mmol/L Anion Gap (4-12) mmol/L BUN (7-17) mg/dL Creatinine (0.7-1.0) mg/dL Estim Creat Clear Calc ml/min Estimated GFR (59 - ) Glucose (65-110) mg/dL POC Capillary Glucose 231 H (65-105) mg/dl Calcium (8.4-10.2) mg/dL Magnesium (1.6-2.3) mg/dL Total Bilirubin (0.2-1.3) mg/dL AST (14-36) U/L ALT (6-35) U/L Alkaline Phosphatase (38-126) U/L Total Creatine Kinase (30-135) U/L Total Protein (6.3-8.2) g/dL Albumin (3.5-5.1) g/dL Lipase (23-300) U/L Urine Color (Yellow) Urine Appearance (Clear) Urine pH (5.0-9.0) Ur Specific Patriot (1.001-1.035) Urine Protein (Negative) mg/dL Urine Glucose (UA) (Negative) mg/dL Urine Ketones (Negative) mg/dL Ur Blood (Man) (Negative) Urine Nitrate (Negative) Urine Bilirubin (Negative) Urine Urobilinogen (<2.0) mg/dL Leukocyte Esterase Rfl (Negative) MADELYN/UL Urine RBC (0-2) /hpf Urine WBC (0-3) /hpf Ur Squamous Epith Cells (Few) /hpf Urine Bacteria /hpf Urine Casts POC Urine HCG, Qual Negative (Negative) Discharge Plan Discharge Clinical Impression: Hyperglycemia, UTI (urinary tract infection) Patient Disposition: Home Condition: Stable Instructions: Antibiotic Form Additional Instructions: Exam is reassuring overall. There is evidence of UTI. Please take antibiotics as prescribed. You are prescribed additional metformin as well as Zofran for nausea. Continue to stay well hydrated. Progress diet as tolerated. If you have any new or worsening symptoms please return to the ER for further evaluation. Patient Language: Tajik Prescriptions: New metformin 500 mg tablet 500 mg PO BID Qty: 60 0RF cefdinir 300 mg capsule 300 mg PO Q12H 7 Days Qty: 14 0RF ondansetron 4 mg tablet,disintegrating 4 mg PO Q8H PRN (Reason: nausea and vomiting) Qty: 10 0RF No Action mupirocin 2 % ointment 1 applic topical BID Qty: 22 0RF Rx Instructions: apply to right shoulder gabapentin 300 mg capsule 300 mg PO DIRECTED lidocaine 5 % adhesive patch,medicated 1 patch topical DAILY Qty: 15 0RF Rx Instructions: leave on most painful area for up to 12 hrs methylprednisolone [Medrol (Emigdio)] 4 mg tablets,dose pack See Rx Instructions .ROUTE .COMPLEX Qty: 21 0RF Rx Instructions: orally per package directions diclofenac sodium 75 mg tablet,delayed release (DR/EC) 75 mg PO BID PRN (Reason: pain) Qty: 20 0RF cyclobenzaprine 10 mg tablet 10 mg PO TID PRN (Reason: muscle spasm) Qty: 20 0RF methylprednisolone [Medrol (Emigdio)] 4 mg tablets,dose pack See Rx Instructions PO .COMPLEX Qty: 21 0RF Rx Instructions: orally per package directions Follow-up/Referrals: [facility] [Primary Care Provider] - Time of Disposition: 23:05
[2024-08-30 21:04] LABS: Basophils Percent Auto 0.2 % (0.2-1.2); Eosinophils Percent Auto 0.3 % (0-4.4); Hematocrit 37.1 % (37.0-47.0); Hemoglobin 11.9 g/dL (12.0-15.0); Immature Granulocyte Absolute 0.07 K/mm3 (0.00-0.031); Immature Granulocyte Percent A 0.6 % (0-0.5); Lymphocytes Absolute Auto 0.75 K/mm3 (0.9-3.2); Lymphocytes Percent Auto 6.8 % (18.3-44.2); Mean Corpuscular HGB Conc 32.1 g/dl (32-36); Mean Corpuscular Hemoglobin 26.2 pg (26-34); Mean Corpuscular Volume 81.7 fl (80-100); Mean Platelet Volume 9.4 fl (7.4-10.4); Monocytes Absolute Auto 0.7 K/mm3 (0.1-0.6); Monocytes Percent Auto 6.4 % (2.6-8.5); Neutrophils Absolute Auto 9.5 K/mm3 (1.3-6.7); Neutrophils Percent Auto 85.7 % (45.5-73.1); Platelet Count Result 364 k/mm3 (150-375); Red Blood Count 4.54 M/mm3 (4.2-5.4); Red Cell Distribution Width 13.8 % (11.5-14.5)
--- OUTSIDE RECORDS SUMMARY | 2024-08-30 21:09 | XMS_ITS | Referral Summary ---
Author Organization [facility] Address [address] [place] [address] Care Team Providers Care Telephone Service Adviser Name Role Phone No, Physician Primary Care Provider [phone] Allergies Active Allergy Reactions Criticality Noted Date [...] (10/09/2021): Added automatically from request for surgery [id number] AC joint arthropathy 10/09/2021 Overview (10/09/2021): Added automatically from request for surgery [id number] Pain in extremity 02/01/2021 Chronic pain of [...] as needed Medical Devices Implanted Type Area Gis Technician Device Identifier Shelf Expiration Date Model / Serial / Lot [employer] Set Implant Arthrex Fibertak Biceps Sterile Latex Free Ar-3670 - [id number] Implanted:Qty: 1 on 10/29/2021 by Jefe Hinds MD at [facility] Right: Shoulder [employer] 08/08/2026 AR-3670 / / [id number] Description:[employer] SET IMPLANT ARTHREX FIBERTAK BICEPS STERILE LATEX FREE AR-3670 - [id number] Procedures Procedure Name Priority Date/Time Associated Diagnosis Comments HEPATITIS C ANTIBODY Routine 12/28/2020 11:09 AM CDT Polyarthritis from Last 3 Months or Most Recently Relevant to Health Maintenance Results * Hepatitis C antibody (12/28/2020 11:09 AM CDT) Hep C Ab Nonreactive Nonreactive [facility] Comment:Antibodies to HCV no t detected. Does NOT exclude the possibility of recent exposure to HCV. Blood 12/28/2020 11:0 9 AM CDT 12/28/2020 1:49 PM CDT us Can Quinn Gil MD PhD LAB MICROBIOL OGY - GENERAL ORDERABLES Edited Result - Final [facility] [place] [address] from Last 3 Months or Most Recently Relevant to Health Maintenance Insurance [facility] Member Subscriber Plan / Payer (Ef fective 2022-Present) Name:Ledy Leyva Relation to Subscriber:Self Name:Ledy Leyva Payer ID:[id number] (NAIC) Group ID:Not on file Type: Address: [place] [id number] [facility] Care Teams Telephone Service Adviser Relationship Specialty Start Date End Date No, Physician PCP - General 01/19/24
--- OUTSIDE RECORDS SUMMARY | 2024-08-30 21:09 | XMS_ITS | Encounter Summary ---
Author Organization [facility] Address [address] [place] [address] Care Team Providers Care Parts Room Assistant Name Role Phone Alexis Barrera Primary Care Provider [phone] Raphael Gomez [facility] Primary Care Provider [phone] Sly Graham Primary Care Provider Unknown, Notinfile Primary Care Provider Unavail able No, Physician Primary Care Provider [phone] Encounter Details Date Type Department Care Team (Late st Contact Info) Description 09/05/2021 Telephone [facility] [address] [facility] [facility] [address] [place] [address] Inés Laughlin MD PhD [address] [facility] [address] [place], [place] [id number] Social History Tobacco Use Types Packs/Day Years [...] on filedocumented in this encounter Care Teams Parts Room Assistant Relationship Specialty Start Date End Date Alexis Barrera PA PCP - General Physician Therapist'S Assistant 09/27/20 03/09/22 [facility] [address] [place], [place] [id number] PCP - General 03/10/22 09/07/22 Sly Graham PA [address] [place], [place] [address] PCP - General Physician Therapist'S Assistant 09/08/22 06/07/23 Unknown, Notinfile PCP - General 07/29/23 01/18/24 No, Physician PCP - General 01/19/24 documented as of this encounter
--- OUTSIDE RECORDS SUMMARY | 2024-08-30 21:09 | XMS_ITS | Clinical Summary ---
Author Organization [facility] Address [address] [place] [address] Care Team Providers Care Inside Sales Advertising Executive Name Role Phone No, Physician Primary Care Provider [phone] Allergies Active Allergy Reactions Criticality Noted Date [...] (10/09/2021): Added automatically from request for surgery [id number] AC joint arthropathy 10/09/2021 Overview (10/09/2021): Added automatically from request for surgery [id number] Pain in extremity 02/01/2021 Chronic pain of [...] as needed Medical Devices Implanted Type Area Kier Pleater Device Identifier Shelf Expiration Date Model / Serial / Lot [employer] Set Implant Arthrex Fibertak Biceps Sterile Latex Free Ar-3670 - [id number] Implanted:Qty: 1 on 10/29/2021 by Jefe Hinds MD at [facility] Right: Shoulder [employer] 08/08/2026 AR-3670 / / [id number] Description:[employer] SET IMPLANT ARTHREX FIBERTAK BICEPS STERILE LATEX FREE AR-3670 - [id number] Procedures Procedure Name Priority Date/Time Associated Diagnosis Comments HEPATITIS C ANTIBODY Routine 12/28/2020 11:09 AM CDT Polyarthritis from Last 3 Months or Most Recently Relevant to Health Maintenance Results * Hepatitis C antibody (12/28/2020 11:09 AM CDT) Hep C Ab Nonreactive Nonreactive [facility] Comment:Antibodies to HCV no t detected. Does NOT exclude the possibility of recent exposure to HCV. Blood 12/28/2020 11:0 9 AM CDT 12/28/2020 1:49 PM CDT us Can Quinn Gil MD PhD LAB MICROBIOL OGY - GENERAL ORDERABLES Edited Result - Final [facility] Department [place] [address] from Last 3 Months or Most Recently Relevant to Health Maintenance Insurance [facility] Care Teams Inside Sales Advertising Executive Relationship Specialty Start Date End Date No, Physician PCP - General 01/19/24
--- OUTSIDE RECORDS SUMMARY | 2024-08-30 21:09 | XMS_ITS | Clinical Summary ---
Author Organization [facility] [employer] [facility] Address [address] [place] [address] Care Team Providers Care Firewood Cutter Name Role Phone Unavailable Primary Care Provider [...] on file Legal Sex Female 3:23 PM NET SOLUTIONS ARCHITECT Gender Identity Not on file Sexual Orientation [...] 10/26/2007, Additional history exists Insurance [employer] [facility]
--- OUTSIDE RECORDS SUMMARY | 2024-08-30 21:10 | XMS_ITS | Clinical Summary ---
Author Organization [facility] Address [facility] [address] [place] [address] Care Team Providers Care Wheel Of Fortune Dealer Name Role Phone Nisha Bro MD Primary Care Provider [phone] Social History Tobacco Use Types Packs/Day Years [...] to complete this topic Insurance Care Teams Wheel Of Fortune Dealer Relationship Specialty Start Date End Date Nisha Bro MD [address] [place] [address] PCP - General OBGYN 11/16/20
--- OUTSIDE RECORDS SUMMARY | 2024-08-30 21:10 | XMS_ITS | Encounter Summary ---
Author Organization [facility] Address [address] [facility] [address] [place] [address] Phone Care Team Providers Care Photographic Plate Maker Name Role Phone Alexis Barrera Primary Care Provider [phone] Raphael Gomez [facility] Primary Care Provider [phone] Sly Graham Primary Care Provider Unknown, Notinfile Primary Care Provider Unavail able No, Physician Primary Care Provider [phone] Encounter Details Date Type Department Care Team [...] on filedocumented in this encounter Care Teams Photographic Plate Maker Relationship Specialty Start Date End Date Alexis Barrera PA PCP - General Physician Motel Operator 09/27/20 03/09/22 [facility] [address] [place] [address] PCP - General 03/10/22 09/07/22 Sly Graham PA [address] [place] [address] PCP - General Physician Motel Operator 09/08/22 06/07/23 Unknown, Notinfile PCP - General 07/29/23 01/18/24 No, Physician PCP - General 01/19/24 documented as of this encounter
[2024-08-30 21:18] LABS: Alanine Aminotransferase 35 U/L (6-35); Albumin Level 4.2 g/dL (3.5-5.1); Alkaline Phosphatase 146 U/L (38-126); Anion Gap 15 mmol/L (4-12); Aspartate Amino Transferase 24 U/L (14-36); Bilirubin,Total 0.6 mg/dL (0.2-1.3); Blood Urea Nitrogen 8 mg/dL (7-17); Calcium 9.7 mg/dL (8.4-10.2); Carbon Dioxide 25 mmol/L (22-30); Chloride 95 mmol/L (98-107); Estimated CRCL calculation 71 ml/min; Estimated Glomerular Filt Rate > 60; Glucose 386 mg/dL (65-110); Lipase 57 U/L (23-300); Potassium 3.7 mmol/L (3.4-5.0); Sodium 135 mmol/L (137-145)
[2024-08-30] MEDS: METOCLOPRAMIDE HCL INJ 10 MG/2 ML VIAL IV PUSH (21:19)
[2024-08-30] MEDS: HYDROmorphone HCL INJ (*CRX) 2 MG/ML VIAL 0.5 MG IV PUSH (21:19)
[2024-08-30] MEDS: SODIUM CHLORIDE 0.9% IV 1,000 ML 999 ML IV CONT ×2 (21:20→21:44)
[2024-08-30 21:25] LABS: Creatine Kinase 42 U/L (30-135); Magnesium 1.8 mg/dL (1.6-2.3)
[2024-08-30 21:29] LABS: Add Urine Microscopic? YES; Appearance Urine Cloudy (Clear); Bacteria Urine Rare /hpf; Bilirubin Urine Negative (Negative); Blood Urine 1+ (Negative); Color Urine Yellow (Yellow); Glucose Urine UA 3+ mg/dL (Negative); Ketones Urine Trace mg/dL (Negative); Leukocyte Esterase Ur 1+ LEU/UL (Negative); Nitrate Urine Positive (Negative); Non Pathogenic Casts 0-2; Protein Urine 1+ mg/dL (Negative); RBC Urine 0-2 /hpf (0-2); Specific Grav Ur 1.022 (1.001-1.035); Squamous Epithelial Cell Urine Occasional /hpf (Few); Urobilinogen Urine 0.2 mg/dL (<2.0); WBC Urine 21-50 /hpf (0-3); pH Urine 5.5 (5.0-9.0)
[2024-08-30] MEDS: INSULIN HUMAN REGULAR (*BKC) 100 UNITS/ML IV PUSH (21:45)
[2024-08-30 22:03] LABS: BEDSIDEPREGUCG Negative (Negative)
[2024-08-30] MEDS: KCL 20 MEQ/SW 100 ML 100 ML 50 MEQ IVPB (22:23)
[2024-08-30 22:51] LABS: Glucose Point of Care 231 mg/dl (65-105)
[2024-08-30 22:53] VITALS: BP 116/81; PULSE 98; RESP 14; O2SAT 100
[2024-08-31 01:08] VITALS: BP 129/87; PULSE 88; RESP 14; O2SAT 99
== END 2024-08-31 01:09 | disposition home or self-care (01) ==
PROVIDERS: Emergency Medicine; Emergency Provider Physician Assistant
DX: N39.0 Urinary tract infection, site not specified (principal); E11.65 Type 2 diabetes mellitus with hyperglycemia; F90.9 Attention-deficit hyperactivity disorder, unspecified type; M79.7 Fibromyalgia; K21.9 Gastro-esophageal reflux disease without esophagitis
CPT/HCPCS: 36415; 74177; 80053; 81001; 81025; 82550; 82948; 83690; 83735; 85025; 87086; 87186; 96365; 96366; 96367; 96375; 99284; J0696; J1171; J1815; J2765; J3480; J7030; Q9967